=== PATIENT | female | born 1935 | race Caucasian/White ===

== ENCOUNTER 2020-06-02 11:55 | Inpatient (IN) | payer OTHER ==
--- NOTE | 2020-06-02 12:13 | PDOC ---
History of Present Illness - General Chief Complaint: Urinary Problem Stated Complaint: CONSTI/UTI Time Seen by Provider: 06/02/20 12:11 - History of Present Illness Initial Comments: Pt is an 84yo F with PMH HTN, HLD who presents with urinary complaints and rectal pain. Pt has a history of urinary symptoms in October, with multiple visits to urgent care and given multiple antibiotic courses with urology follow up. Was told by urology that testing was normal and suggested that patient may have overactive bladder - given a trial of mirabegron, but patient did not take medication due to concern for adverse effects (high BP). Reports improvement in urinary symptoms in December, and reports intermittent minimal symptoms in the meanwhile. States that since yesterday has noticed increased urinary frequency, hesitancy, and urgency. Reports history of intermittent rectal pain, for which she saw her PCP earlier this week. Was given hydrocortisone cream and celebrex for hemorrhoid. States that since yesterday, her rectal pain has become constant and sharp, occurring even without bowel movements. Reports 1 episode of diarrhea yesterday, denies f/c, chest pain, abdominal pain, n/v, constipation, dysuria, hematuria, flank pain. PCP: david Urologist: angle PMH: see above PSHx: hip surgery in october Meds: amlodipine, lisinopril, simvastatin, ASA 81 All: NKDA Review of Systems CONSTITUTIONAL:denies fever, chills, diaphoresis, generalized weakness, malaise, loss of appetite HEENT:denies rhinorrhea, nasal congestion, sore throat CARDIOVASCULAR:denies chest pain, syncope, palpitations, irregular heart rate, lightheadedness RESPIRATORY:denies cough, shortness of breath GASTROINTESTINAL: denies abdominal pain, nausea, vomiting, constipation, melena, hematochezia GENITOURINARY: reports frequency, urgency, hesitancy; denies dysuria, hematuria, flank pain, genital pain MUSCULOSKELETAL:reports arthralgia (constant) HEMATOLOGIC/IMMUNOLOGIC:denies easy bleeding, easy bruising ENDOCRINE: denies unexplained weight gain, unexplained weight loss NEUROLOGIC:denies headache, loss of consciousness, focal weakness or paresthesias, dizziness, mental status changes, bladder or bowel incontinence SKIN:denies rash, itching, pallor Physical Exam General: awake, alert, fully oriented, in mild distress, well developed, well nourished Head: normocephalic, atraumatic Eyes: PERRL, anicteric sclera, conjunctiva clear ENT: hearing grossly normal, oropharynx clear without exudates, slightly dry mucous membranes Neck: supple, normal ROM Lung: equal breath sounds b/l, CTA b/l, no crackles, wheezes Heart: tachycardic, normal S1, S2, no murmurs appreciated Abdomen: soft, non tender, normoactive bowel sounds, no guarding, rebound, masses Extremities: no edema, no erythema or tenderness, radial/DP/PT pulses 2+ and symmetric Neuro: CN2-12 grossly intact, moves all extremities, normal speech, sensation intact Skin: warm, dry, no rashes or lesions noted Rectal exam: external hemorrhoid at 6oclock, no gross blood, soft stool in rectal vault, no masses, nodules and tenderness appreciated [facility] Pt is an 84yo F with PMH HTN, HLD who presents with urinary complaints and rectal pain. DDx including but not limited to: UTI, external hemorrhoid Workup: UA/UCx UA: leukocyturia, -LE, -nitrites, few bacteria - Will order CBC, CMP CBC: hyponatremia, hypochloremia, no AMBER, LFT WNL - patient endorses increased water intake to improve constipation Admission discussed with patient who agreed to plan Case discussed with Dr. Garzon who accepted care for patient. Disposition: Admit Past History - Medical History Allergies/Adverse Reactions: Allergies Allergy/AdvReac Type Severity Reaction Status Date / Time No Known Allergies Allergy Verified 06/02/20 12:02 Home Medications: Ambulatory Orders Lisinopril [Prinivil] 15 mg PO BID 07/05/16 Simvastatin [Zocor -] 40 mg PO HS 07/05/16 Sennosides/Docusate Sodium [Senna Plus Tablet] 1 each PO BID #60 tablet 07/07/16 Amlodipine Besylate [Norvasc -] 5 mg PO DAILY 06/02/20 Aspirin [Children's Aspirin] 81 mg PO DAILY 06/02/20 Bisacodyl [Dulcolax] 2 tab PO BID 06/02/20 Polyethylene Glycol 3350 [Miralax 119 gm Btl -] 17 gm PO DAILY 06/02/20 Hydrocortisone 2.5% Topical Cr [Anusol-Hc -] 1 applic RC DAILY #1 tube 06/10/20 Sodium Chloride Tablet - 1 gm PO TID #24 tablet 06/10/20 COPD: No HTN: Yes Hypercholesterolemia: Yes - Reproductive History Is Patient Now?: No - Psycho-Social/Smoking History Smoking History: Never smoked Have you smoked in the past 12 months: No Number of Cigarettes Smoked Daily: 5 Information on smoking cessation initiated: No 'Breaking Loose' booklet given: 07/05/16 - Substance Abuse Hx (Audit-C & DAST Scrn) How often the patient has a drink containing alcohol: Never Score: In Men: 4 or > Positive; In Women: 3 or > Positive: 0 Screen Result (Pos requires Nsg. Audit-10AR): Negative In the last yr the pt used illegal drug/Rx for NonMed reason: No Score: Yes response is considered Positive: 0 Screen Result (Positive result requires Nsg. DAST-10): Negative *Physical Exam - Vital Signs Last Vital Signs Temp Pulse Resp BP Pulse Ox 98.3 F 105 H 18 156/73 97 06/02/20 11:56 06/02/20 11:56 06/02/20 11:56 06/02/20 11:56 06/02/20 11:56 ED Treatment Course - LABORATORY CBC & Chemistry Diagram: 06/06/20 09:50 06/10/20 07:23 Discharge - Discharge Information Problems reviewed: Yes Clinical Impression/Diagnosis: Anal or rectal pain, Hyponatremia Condition: Stable Disposition: HOME - Follow up/Referral - Patient Discharge Instructions - Post Discharge Activity
--- NOTE | 2020-06-02 13:12 | PDOC ---
Documentation entered by Ronnie Cunha SCRIBE, acting as scribe for Tori Cartagena MD. Tori Cartagena MD: This documentation has been prepared by the funmilayoibe, Ronnie Cunha SCRIBE, under my direction and personally reviewed by me in its entirety. I confirm that the documentation accurately reflects all work, treatment, procedures, and medical decision making performed by me. Attending Attestation - Resident Resident Name: Karla Quispe - ED Attending Attestation I have performed the following: I have examined & evaluated the patient, The case was reviewed & discussed with the resident, I agree w/resident's findings & plan, Exceptions are as noted - HPI HPI: 84 year old F history of HTN and HLD who presents to the emergency department for evaluation of urinary frequency, hesitancy, and urgency with worsening rectal pain that began two days ago. The patient reports a history of UTIs for which she has followed at Urgent Care and with her urologist. She notes her urologist stated she has normal anatomy (kidney and ureters) but may have overactive bladder. The patient reports intermittent rectal pain with bowel movements and hemorrhoids in the past but is currently complaining of sharp, constant rectal pain. She endorses using celebrex for relief of prior rectal pain. Allergies: NKA Social Hx: The patient reports smoking 4-5 cigarettes per day Surgical Hx: None reported PCP: Dr. Miranda - Physicial Exam PE: 06/02/20 12:12 GENERAL: Awake, alert, and fully oriented, in no acute distress HEAD: No signs of trauma EYES: PERRLA, EOMI, sclera anicteric, conjunctiva clear ENT: Auricles normal inspection, hearing grossly normal, nares patent, oropharynx clear without exudates. Moist mucosa NECK: Normal ROM, supple, no lymphadenopathy, JVD, or masses LUNGS: Breath sounds equal, clear to auscultation bilaterally. No wheezes, and no crackles HEART: Regular rate and rhythm, normal S1 and S2, no murmurs, rubs or gallops ABDOMEN: Soft, nontender, normoactive bowel sounds. No guarding, no rebound. No masses EXTREMITIES: Normal range of motion, no edema. No clubbing or cyanosis. No cords, erythema, or tenderness NEUROLOGICAL: Cranial nerves II through XII grossly intact. Normal speech. ambulates with assistance. SKIN: Warm, Dry, normal turgor, no rashes or lesions noted. RECTAL: +External non-thrombosed hemorrhoid at the 3 o'clock position, approximately 5 mm in diameter. - Medical Decision Making 06/02/20 13:13 Pt with history of UTIs, will check UA to begin. If normal, will proceed with labs. 06/02/20 16:45 As per discussion with [facility] urgent care, patient has history of Serratia UTI in November, sensitive to bactrim, amikacin, cefepime, aztreonam, cipro, gentamicin, ertapenem, meropenem, and zosyn. Resistant to macrobid, tobramycin, and tetracycline. Discharge - Discharge Information Problems reviewed: Yes Clinical Impression/Diagnosis: Anal or rectal pain, Hyponatremia - Follow up/Referral - Patient Discharge Instructions - Post Discharge Activity
[2020-06-02 13:29] LABS: EPI CELLS 8 /uL (0-25.1); HYALINE CASTS 1 /uL (0-3.1); PH,URINE 7.5 (5.0-8.0); URINE APPEARANCE CLEAR; URINE BACTERIA 109 /uL (0-1359); URINE BILIRUBIN NEGATIVE (NEGATIVE); URINE COLOR YELLOW; URINE GLUCOSE (UA) NEGATIVE (NEGATIVE); URINE KETONE NEGATIVE (NEGATIVE); URINE LEUK ESTERASE TRACE (NEGATIVE); URINE NITRITE NEGATIVE (NEGATIVE); URINE PROTEIN TRACE (NEGATIVE); URINE RBC 21 /uL (0-23.9); URINE WBC 49 /uL (0-25.8)
[2020-06-02] MEDS ORDERED: ACETAMINOPHEN 1000 MG/100 ML VIAL (NON FORMULARY) IVPB ONE (14:34)
[2020-06-02] MEDS ORDERED: ACETAMINOPHEN INJECTION 100 ML IVPB ONE (14:35)
[2020-06-02 14:39] LABS: BILIRUBIN,TOTAL 0.4 mg/dL (0.2-1); BLOOD UREA NITROGEN 7.1 mg/dL (7-18); CALCIUM 8.9 mg/dL (8.5-10.1); CREATININE 0.6 mg/dL (0.55-1.3); POTASSIUM 4.3 mmol/L (3.5-5.1); TOT PROT 7.5 g/dl (6.4-8.2)
[2020-06-02 14:47] LABS: BASO % 0.5 % (0-2.0); EOS % 0.2 % (0-4.5); HEMATOCRIT 36.4 % (32.4-45.2); HEMOGLOBIN 12.8 GM/dL (10.7-15.3); LYMPH % 9.9 % (8-40); MCH 32.7 pg (25.7-33.7); MCHC 35.2 g/dl (32.0-36.0); MEAN CELL VOLUME 92.8 fl (80-96); MEAN PLT VOLUME 7.1 fl (7.5-11.1); MONO % 9.1 % (3.8-10.2); NEUT % 80.3 % (42.8-82.8); PLATELET COUNT 321 K/MM3 (134-434); RBC 3.92 M/mm3 (3.60-5.2); RDW 13.1 % (11.6-15.6)
[2020-06-02] MEDS ORDERED: amLODIPine BESYLATE 5 MG TABLET (FP) PO ONE (16:29)
--- NOTE | 2020-06-02 16:37 | HP ---
CHIEF COMPLAINT: PCP: Dr Miranda HISTORY OF PRESENT ILLNESS: 84 year old female with a significant past medical history of mild glaucoma, HTN, hypercholesterolemia, hemorrhoids, history of hyponatremia (years ago, felt secondary to HCTZ) who presents to the emergency department for evaluation of urinary frequency, hesitancy, and urgency as well as worsening rectal pain. Patient has been having intermittent rectal pain for years which she attributes to chronic constipation prompting her to strain frequently. She has been taking tylenol for the pain which does not help. She also reports that she has been having increased frequency and urgency, also on and off for years. She was recently diagnosed with a UTI and given antibiotics. She was informed that her urologic anatomy is fine but she may have an overactive bladder Upon presentation she was evaluated and found to have a sodium level of 121. P atient reports that she is trying to drink more water (at the advice of her daughter) and striving for 64 ounces a day (8 glasses). This started about a week ago, in her efforts to combat constipation. Recent Travel: none PAST MEDICAL HISTORY: as above PAST SURGICAL HISTORY: right hip replacement Family history: mother in her 90s of respiratory problems. She had history of dementia and strokes. Father of complications of a heart attack at 81 years of age Social History: Smoking: quit 4 years ago Alcohol: she drinks vodka about 2 servings every evening Drugs: denies Allergies No Known Allergies Allergy (Verified 06/02/20 12:02) HOME MEDICATIONS: Home Medications Medication Instructions Recorded Lisinopril [Prinivil] 5 mg PO DAILY 07/05/16 Simvastatin [Zocor -] 40 mg PO HS 07/05/16 Sennosides/Docusate Sodium [Senna 1 each PO BID #60 tablet 07/07/16 Plus Tablet] REVIEW OF SYSTEMS CONSTITUTIONAL: Absent: fever, chills, diaphoresis, generalized weakness, malaise, loss of appetite, weight change HEENT: Absent: rhinorrhea, nasal congestion, throat pain, throat swelling, difficulty swallowing, mouth swelling, ear pain, eye pain, visual changes CARDIOVASCULAR: Absent: chest pain, syncope, palpitations, irregular heart rate, lightheadedness, peripheral edema RESPIRATORY: Absent: cough, shortness of breath, dyspnea with exertion, orthopnea, wheezing, stridor, hemoptysis GASTROINTESTINAL: Absent: abdominal pain, abdominal distension, nausea, vomiting, diarrhea, constipation, melena, hematochezia GENITOURINARY: Absent: dysuria, frequency, urgency, hesitancy, hematuria, flank pain, genital pain MUSCULOSKELETAL: Absent: myalgia, arthralgia, joint swelling, back pain, neck pain SKIN: Absent: rash, itching, pallor HEMATOLOGIC/IMMUNOLOGIC: Absent: easy bleeding, easy bruising, lymphadenopathy, frequent infections ENDOCRINE: Absent: unexplained weight gain, unexplained weight loss, heat intolerance, cold intolerance NEUROLOGIC: Absent: headache, focal weakness or paresthesias, dizziness, unsteady gait, seizure, mental status changes, bladder or bowel incontinence PSYCHIATRIC: Absent: anxiety, depression, suicidal or homicidal ideation, hallucinations. PHYSICAL EXAMINATION Vital Signs - 24 hr 06/02/20 11:56 Temperature 98.3 F Pulse Rate 105 H Respiratory 18 Rate Blood Pressure 156/73 O2 Sat by Pulse 97 Oximetry (%) GENERAL: Awake, alert, and fully oriented, in no acute distress. HEAD: Normal with no signs of trauma. EYES: Pupils equal, round and reactive to light, extraocular movements intact, sclera anicteric, conjunctiva clear. No lid lag. EARS, NOSE, THROAT: Ears normal, nares patent, oropharynx clear without exudates. Moist mucous membranes. NECK: Normal range of motion, supple without lymphadenopathy, JVD, or masses. LUNGS: Breath sounds equal, clear to auscultation bilaterally. No wheezes, and no crackles. No accessory muscle use. HEART: Regular rate and rhythm, normal S1 and S2 without murmur, rub or gallop. ABDOMEN: Soft, nontender, not distended, normoactive bowel sounds, no guarding, no rebound, no masses. No hepatomegaly or splenomegaly. On examination of her anus, there is mild erythema of the perianal area. A rectal tag is also noted and appears normal in color. Patient refused palpation secondary to discomfort. No bleeding noted. MUSCULOSKELETAL: Normal range of motion at all joints. No bony deformities or tenderness. No CVA tenderness. UPPER EXTREMITIES: 2+ pulses, warm, well-perfused. No cyanosis. No clubbing. No peripheral edema. LOWER EXTREMITIES: 2+ pulses, warm, well-perfused. No calf tenderness. No peripheral edema. NEUROLOGICAL: Cranial nerves II-XII intact. Normal speech. PSYCHIATRIC: Cooperative. Good eye contact. Appropriate mood and affect. SKIN: Warm, dry, normal turgor, no rashes or lesions noted, normal capillary refill. Laboratory Results - last 24 hr 06/02/20 06/02/20 06/02/20 13:00 13:00 13:50 WBC 9.0 RBC 3.92 Hgb 12.8 Hct 36.4 MCV 92.8 MCH 32.7 MCHC 35.2 RDW 13.1 Plt Count 321 MPV 7.1 L Absolute Neuts (auto) 7.2 Neutrophils % 80.3 D Lymphocytes % 9.9 D Monocytes % 9.1 Eosinophils % 0.2 D Basophils % 0.5 Nucleated RBC % 0 Sodium Potassium Chloride Carbon Dioxide Anion Gap BUN Creatinine Est GFR (CKD-EPI)AfAm Est GFR (CKD-EPI)NonAf Random Glucose Calcium Total Bilirubin AST ALT Alkaline Phosphatase Total Protein Albumin Urine Color Yellow Urine Appearance Clear Urine pH 7.5 D Ur Specific [place] 1.011 Urine Protein Trace Urine Glucose (UA) Negative Urine Ketones Negative Urine Blood Negative Urine Nitrite Negative Urine Bilirubin Negative Urine Urobilinogen 1.0 Ur Leukocyte Esterase Trace Urine WBC (Auto) 49 Urine RBC (Auto) 21 Urine Casts (Auto) 1 U Epithel Cells (Auto) 8 Urine Bacteria (Auto) 109 Ur Random Creatinine 50.0 U Random Total Protein 26.4 H Ur Random Sodium 98 Ur Random Potassium 44.0 Ur Random Chloride 104 L 06/02/20 13:50 WBC RBC Hgb Hct MCV MCH MCHC RDW Plt Count MPV Absolute Neuts (auto) Neutrophils % Lymphocytes % Monocytes % Eosinophils % Basophils % Nucleated RBC % Sodium 121 L Potassium 4.3 Chloride 86 L Carbon Dioxide 25 Anion Gap 10 BUN 7.1 Creatinine 0.6 Est GFR (CKD-EPI)AfAm 97.69 Est GFR (CKD-EPI)NonAf 84.29 Random Glucose 110 H Calcium 8.9 Total Bilirubin 0.4 AST 17 ALT 20 Alkaline Phosphatase 80 Total Protein 7.5 Albumin 4.0 Urine Color Urine Appearance Urine pH Ur Specific [place] Urine Protein Urine Glucose (UA) Urine Ketones Urine Blood Urine Nitrite Urine Bilirubin Urine Urobilinogen Ur Leukocyte Esterase Urine WBC (Auto) Urine RBC (Auto) Urine Casts (Auto) U Epithel Cells (Auto) Urine Bacteria (Auto) Ur Random Creatinine U Random Total Protein Ur Random Sodium Ur Random Potassium Ur Random Chloride ASSESSMENT/PLAN: 1. Rectal pain secondary to irritation, mild hemorrhoid flare - anusol - will continue miralax which helps her with regular BM - prn bisacodyl 2. Hyponatremia - on review of notes she was in hospital 4 years ago for rectal pain and incidentally noted hyponatremia - Suspect secondary to polydipsia. - work up: urine and serum osm, urine sodium, TSH - Dr Carson of nephrology consulted (case Discussed with) - fluid restriction as per direction from digital computer operator - salt tabs will be started - repeat BMP in am 3. cont statin for hypercholesterolemia 4. cont amlodipine and lisinopril for hypertension 5. Lovenox for DVT prophylaxis Family Medical History Family History: As Documented Problem List - Problem (1) Hyponatremia Code(s): E87.1 - HYPO-OSMOLALITY AND HYPONATREMIA (2) Anal or rectal pain Code(s): K62.89 - OTHER SPECIFIED DISEASES OF ANUS AND RECTUM (3) Constipation Code(s): K59.00 - CONSTIPATION, UNSPECIFIED Visit type - Medication Review Med list reviewed for High Risk Meds patients 65 and older: Yes - Emergency Visit Emergency Visit: Yes ED Registration Date: 06/02/20 Care time: The patient presented to the Emergency Department on the above date and was hospitalized for further evaluation of their emergent condition. - New Patient This patient is new to me today: Yes Date on this admission: 06/02/20 - Critical Care Critical Care patient: No
[2020-06-02] MEDS ORDERED: amLODIPine BESYLATE 5 MG TABLET (FP) ONE (17:01)
[2020-06-02 17:43] LABS: BLOOD UREA NITROGEN 6.2 mg/dL (7-18); CALCIUM 8.8 mg/dL (8.5-10.1); CREATININE 0.6 mg/dL (0.55-1.3); POTASSIUM 4.2 mmol/L (3.5-5.1)
[2020-06-02] MEDS: SODIUM CHLORIDE 1 GM TABLET PO SCH (18:11)
[2020-06-02] MEDS ORDERED: ACETAMINOPHEN 325 MG TABLET (FP) ONE (18:35)
[2020-06-02] MEDS: ACETAMINOPHEN 325 MG TABLET (FP) PO PRN (18:40)
[2020-06-02] MEDS ORDERED: LISINOPRIL 5 MG TABLET (FP) PO ONE (23:07)
[2020-06-02] MEDS ORDERED: MORPHINE SULFATE 2 MG/ML VIAL IM ONE (23:43)
[2020-06-03] MEDS ORDERED: PT OWN MED DRAWER 7, Y5N ONE ×5 (08:48→10:19)
[2020-06-03] MEDS ORDERED: BISACODYL 5 MG TABLET.DR (FP) PO PRN (09:00)
[2020-06-03] MEDS: amLODIPine BESYLATE 5 MG TABLET (FP) PO SCH (10:03)
[2020-06-03] MEDS: ENOXAPARIN NA (PORCINE) 40 MG/0.4 ML DISP.SYRIN SQ SCH (10:03)
[2020-06-03] MEDS: LISINOPRIL 5 MG TABLET (FP) PO SCH (10:03)
[2020-06-03] MEDS: ASPIRIN 81 MG CHEWABLE TABLETS PO SCH (10:03)
[2020-06-03 10:18] LABS: BASO % 1.4 % (0-2.0); EOS % 2.6 % (0-4.5); HEMATOCRIT 35.7 % (32.4-45.2); HEMOGLOBIN 12.3 GM/dL (10.7-15.3); LYMPH % 28.9 % (8-40); MCH 32.5 pg (25.7-33.7); MCHC 34.6 g/dl (32.0-36.0); MEAN CELL VOLUME 93.9 fl (80-96); MEAN PLT VOLUME 7.4 fl (7.5-11.1); MONO % 13.7 % (3.8-10.2); NEUT % 53.4 % (42.8-82.8); PLATELET COUNT 286 K/MM3 (134-434); RDW 13.2 % (11.6-15.6); WHITE BLOOD COUNT 6.6 K/mm3 (4.0-10.0)
[2020-06-03 10:18] LABS: MAGNESIUM 2.3 mg/dL (1.8-2.4)
[2020-06-03] MEDS: SODIUM CHLORIDE 1 GM TABLET PO SCH (10:21)
[2020-06-03] MEDS: HYDROCORTISONE 2.5% TOPICAL CREAM 30 GM TUBE RC SCH (10:21)
--- NOTE | 2020-06-03 11:55 | PN ---
Physical Exam: SUBJECTIVE: Patient seen and examined, sitting up, fluid restriction Na 124 today OBJECTIVE: Vital Signs Period Temp Pulse Resp BP Sys/S[place] Pulse Ox Last 24 Hr 97.7 F-98.3 F 69-105 18-20 128-176/61-81 95-97 GENERAL: The patient is awake, alert, and fully oriented, in no acute distress. HEAD: Normal with no signs of trauma. EYES: PERRL, extraocular movements intact, sclera anicteric, conjunctiva clear. No ptosis. ENT: Ears normal, nares patent, oropharynx clear without exudates, moist mucous membranes. NECK: Trachea midline, full range of motion, supple. LUNGS: Breath sounds equal, clear to auscultation bilaterally, no wheezes, no crackles, no accessory muscle use. HEART: Regular rate and rhythm, S1, S2 without murmur, rub or gallop. ABDOMEN: Soft, nontender, nondistended, normoactive bowel sounds, no guarding, no rebound, no hepatosplenomegaly, no masses. EXTREMITIES: 2+ pulses, warm, well-perfused, no edema. NEUROLOGICAL: Cranial nerves II through XII grossly intact. Normal speech, gait not observed. PSYCH: Normal mood, normal affect. SKIN: Warm, dry, normal turgor, no rashes or lesions noted Laboratory Results - last 24 hr 06/02/20 06/02/20 06/02/20 13:00 13:00 13:01 WBC RBC Hgb Hct MCV MCH MCHC RDW Plt Count MPV Absolute Neuts (auto) Neutrophils % Lymphocytes % Monocytes % Eosinophils % Basophils % Nucleated RBC % Sodium Potassium Chloride Carbon Dioxide Anion Gap BUN Creatinine Est GFR (CKD-EPI)AfAm Est GFR (CKD-EPI)NonAf Random Glucose Serum Osmolality Calcium Magnesium Total Bilirubin AST ALT Alkaline Phosphatase Total Protein Albumin TSH Urine Color Yellow Urine Appearance Clear Urine pH 7.5 D Ur Specific [place] 1.011 Urine Protein Trace Urine Glucose (UA) Negative Urine Ketones Negative Urine Blood Negative Urine Nitrite Negative Urine Bilirubin Negative Urine Urobilinogen 1.0 Ur Leukocyte Esterase Trace Urine WBC (Auto) 49 Urine RBC (Auto) 21 Urine Casts (Auto) 1 U Epithel Cells (Auto) 8 Urine Bacteria (Auto) 109 Urine Osmolality 371 Ur Random Creatinine 50.0 U Random Total Protein 26.4 H Ur Random Sodium 98 98 Ur Random Potassium 44.0 Ur Random Chloride 104 L 06/02/20 06/02/20 06/02/20 13:50 13:50 17:00 WBC 9.0 RBC 3.92 Hgb 12.8 Hct 36.4 MCV 92.8 MCH 32.7 MCHC 35.2 RDW 13.1 Plt Count 321 MPV 7.1 L Absolute Neuts (auto) 7.2 Neutrophils % 80.3 D Lymphocytes % 9.9 D Monocytes % 9.1 Eosinophils % 0.2 D Basophils % 0.5 Nucleated RBC % 0 Sodium 121 L 121 L Potassium 4.3 4.2 Chloride 86 L 86 L Carbon Dioxide 25 24 Anion Gap 10 11 BUN 7.1 6.2 L Creatinine 0.6 0.6 Est GFR (CKD-EPI)AfAm 97.69 97.69 Est GFR (CKD-EPI)NonAf 84.29 84.29 Random Glucose 110 H 110 H Serum Osmolality 248 L Calcium 8.9 8.8 Magnesium Total Bilirubin 0.4 AST 17 ALT 20 Alkaline Phosphatase 80 Total Protein 7.5 Albumin 4.0 TSH 1.37 Urine Color Urine Appearance Urine pH Ur Specific [place] Urine Protein Urine Glucose (UA) Urine Ketones Urine Blood Urine Nitrite Urine Bilirubin Urine Urobilinogen Ur Leukocyte Esterase Urine WBC (Auto) Urine RBC (Auto) Urine Casts (Auto) U Epithel Cells (Auto) Urine Bacteria (Auto) Urine Osmolality Ur Random Creatinine U Random Total Protein Ur Random Sodium Ur Random Potassium Ur Random Chloride 06/03/20 06/03/20 06:30 06:40 WBC 6.6 RBC 3.80 Hgb 12.3 Hct 35.7 MCV 93.9 MCH 32.5 MCHC 34.6 RDW 13.2 Plt Count 286 MPV 7.4 L Absolute Neuts (auto) 3.5 Neutrophils % 53.4 D Lymphocytes % 28.9 D Monocytes % 13.7 H Eosinophils % 2.6 D Basophils % 1.4 Nucleated RBC % 0 Sodium 124 L Potassium Chloride Carbon Dioxide Anion Gap BUN Creatinine Est GFR (CKD-EPI)AfAm Est GFR (CKD-EPI)NonAf Random Glucose Serum Osmolality Calcium Magnesium 2.3 Total Bilirubin AST ALT Alkaline Phosphatase Total Protein Albumin TSH Urine Color Urine Appearance Urine pH Ur Specific [place] Urine Protein Urine Glucose (UA) Urine Ketones Urine Blood Urine Nitrite Urine Bilirubin Urine Urobilinogen Ur Leukocyte Esterase Urine WBC (Auto) Urine RBC (Auto) Urine Casts (Auto) U Epithel Cells (Auto) Urine Bacteria (Auto) Urine Osmolality Ur Random Creatinine U Random Total Protein Ur Random Sodium Ur Random Potassium Ur Random Chloride Active Medications Generic Name Dose Route Start Last Admin Trade Name Freq PRN Reason Stop Dose Admin Acetaminophen 650 mg 06/02/20 16:50 06/02/20 18:40 Tylenol - PO 650 mg Q4H PRN Administration PAIN LEVEL 1-5 Amlodipine Besylate 5 mg 06/03/20 10:00 06/03/20 10:03 Norvasc - PO 5 mg DAILY ERNESTO Administration Aspirin 81 mg 06/03/20 10:00 06/03/20 10:03 Asa - PO 81 mg DAILY ERNESTO Administration Bisacodyl 20 mg 06/03/20 09:00 Dulcolax - PO ONCE PRN CONSTIPATION Enoxaparin Sodium 40 mg 06/03/20 10:00 06/03/20 10:03 Lovenox - SQ 40 mg DAILY ERNESTO Administration Hydrocortisone 1 applic 06/03/20 10:00 06/03/20 10:21 Anusol 2.5% Hc Cream - RC 1 applic DAILY ERNESTO Administration Lisinopril 5 mg 06/03/20 10:00 06/03/20 10:03 Prinivil PO 5 mg DAILY ERNESTO Administration Polyethylene Glycol 17 gm 06/03/20 10:00 Miralax (For Daily Use) - PO DAILY ERNESTO Sodium Chloride 1 gm 06/02/20 16:45 06/03/20 10:21 Sodium Chloride Tablet - PO 1 gm DAILY ERNESTO Administration ASSESSMENT/PLAN: 84 year old female with a significant past medical history of mild glaucoma, HTN, hypercholesterolemia, hemorrhoids, history of hyponatremia (years ago, felt secondary to HCTZ) Problem List - Problem (1) Hyponatremia - Suspect secondary to polydipsia. - work up: urine and serum osm, urine sodium, TSH -Nephrology following - fluid restriction as per direction from manager dental - c/w sodium tabs Code(s): E87.1 - HYPO-OSMOLALITY AND HYPONATREMIA (2) Anal or rectal pain (3) Constipation - anusol - continue miralax which helps her with regular BM - prn bisacodyl Code(s): K62.89 - OTHER SPECIFIED DISEASES OF ANUS AND RECTUM Code(s): K59.00 - CONSTIPATION, UNSPECIFIED (4) HTN (5) Hypercholesterolemia -c/w norvsac, lisinopril, statin (6) UTI, chronic -UA neg -Urine cx strep agalactiae group B 50,000-60,000 -will hold off on ABT, afebrile, no leukocystosis Dispo: requires inpatient treatment Visit type - Emergency Visit Emergency Visit: Yes ED Registration Date: 06/02/20 Care time: The patient presented to the Emergency Department on the above date and was hospitalized for further evaluation of their emergent condition. - New Patient This patient is new to me today: Yes Date on this admission: 06/03/20 - Critical Care Critical Care patient: No - Medication Review Med list reviewed for High Risk Meds patients 65 and older: No
[2020-06-03] MEDS: POLYETHYLENE GLYCOL 3350 119 GM BTL PO SCH (11:56)
--- NOTE | 2020-06-03 12:49 | CONSULT ---
Consult Consult Specialty:: Nephrology Reason for Consultation:: hyponatremia - History of Present Illness Chief Complaint: urinary frequency and urgency History of Present Illness: Pt is an 84 year old female with pmhx of hyponatremia, glaucoma, htn, hld, and hemorrhoids who presents with dysuria. She was found to have a UTI. She was also found to be hyponatremic. She does have history of hyponatremia. She says that she has been trying to drink alot of water to help with her constipation. She denies weight loss. She denies loss of appetite. She denies fevers or chills. She denies change in vision. SHe denies loss of balance. - History Source History Provided By: Patient, Medical Record - Past Medical History Cardio/Vascular: Yes: HTN Gastrointestinal: Yes: Constipation Renal/: Yes: Other (hyponatremia) ...: No - Past Surgical History Past Surgical History: Yes: Cataract Removal - Alcohol/Substance Use Hx Alcohol Use: No - Smoking History Smoking history: Never smoked Have you smoked in the past 12 months: No Aproximately how many cigarettes per day: 5 Home Medications - Allergies Allergies/Adverse Reactions: Allergies Allergy/AdvReac Type Severity Reaction Status Date / Time No Known Allergies Allergy Verified 06/02/20 12:02 - Home Medications Home Medications: Ambulatory Orders Lisinopril [Prinivil] 15 mg PO BID 07/05/16 Simvastatin [Zocor -] 40 mg PO HS 07/05/16 Sennosides/Docusate Sodium [Senna Plus Tablet] 1 each PO BID #60 tablet 07/07/16 Amlodipine Besylate [Norvasc -] 5 mg PO DAILY 06/02/20 Aspirin [Children's Aspirin] 81 mg PO DAILY 06/02/20 Bisacodyl [Dulcolax] 2 tab PO BID 06/02/20 Polyethylene Glycol 3350 [Miralax 119 gm Btl -] 17 gm PO DAILY 06/02/20 Family Medical History Family History: Denies Review of Systems - Review of Systems Constitutional: reports: Weakness Eyes: reports: No Symptoms HENT: reports: No Symptoms Neck: reports: No Symptoms Cardiovascular: reports: No Symptoms Respiratory: reports: No Symptoms Gastrointestinal: reports: No Symptoms Genitourinary: reports: No Symptoms Musculoskeletal: reports: No Symptoms Integumentary: reports: No Symptoms Neurological: reports: No Symptoms Endocrine: reports: No Symptoms Hematology/Lymphatic: reports: No Symptoms Psychiatric: reports: No Symptoms Physical Exam Vital Signs: Vital Signs Temperature 97.7 F 06/03/20 10:00 Pulse Rate 81 06/03/20 10:00 Respiratory Rate 19 06/03/20 10:00 Blood Pressure 128/61 06/03/20 10:00 O2 Sat by Pulse Oximetry (%) 95 06/03/20 10:00 Constitutional: Yes: Calm Eyes: Yes: Conjunctiva Clear HENT: Yes: Atraumatic Neck: Yes: Supple Cardiovascular: Yes: S1, S2 Respiratory: Yes: CTA Bilaterally Gastrointestinal: Yes: Normal Bowel Sounds, Soft Renal/: Yes: WNL Musculoskeletal: Yes: WNL Edema: No Neurological: Yes: Oriented Psychiatric: Yes: Oriented Labs: CBC, BMP 06/03/20 06:30 06/03/20 06:40 Problem List - Problems (1) Hyponatremia Code(s): E87.1 - HYPO-OSMOLALITY AND HYPONATREMIA (2) Constipation Code(s): K59.00 - CONSTIPATION, UNSPECIFIED Assessment/Plan Current Medications Generic Name Dose Route Start Last Admin Trade Name Freq PRN Reason Stop Dose Admin Acetaminophen 650 mg 06/02/20 16:50 06/02/20 18:40 Tylenol - PO 650 mg Q4H PRN Administration PAIN LEVEL 1-5 Amlodipine Besylate 5 mg 06/03/20 10:00 06/03/20 10:03 Norvasc - PO 5 mg DAILY ERNESTO Administration Aspirin 81 mg 06/03/20 10:00 06/03/20 10:03 Asa - PO 81 mg DAILY ERNESTO Administration Bisacodyl 20 mg 06/03/20 09:00 Dulcolax - PO ONCE PRN CONSTIPATION Enoxaparin Sodium 40 mg 06/03/20 10:00 06/03/20 10:03 Lovenox - SQ 40 mg DAILY ERNESTO Administration Hydrocortisone 1 applic 06/03/20 10:00 06/03/20 10:21 Anusol 2.5% Hc Cream - RC 1 applic DAILY ERNESTO Administration Lisinopril 5 mg 06/03/20 10:00 06/03/20 10:03 Prinivil PO 5 mg DAILY ERNESTO Administration Polyethylene Glycol 17 gm 06/03/20 10:00 06/03/20 11:56 Miralax (For Daily Use) - PO 17 grams DAILY ERNESTO Administration Sodium Chloride 1 gm 06/02/20 16:45 06/03/20 10:21 Sodium Chloride Tablet - PO 1 gm DAILY ERNESTO Administration Laboratory Tests 06/02/20 06/02/20 06/02/20 13:00 13:01 17:00 Serum Osmolality 248 L Ur Specific [place] 1.011 Urine Protein Trace Urine Osmolality 371 Ur Random Sodium 98 Impression 1. hyponatremia 2. UTI 3. htn 4. constipation 5. rectal pain Plan - restrict free water to 1 liter - cont salt tabs - urine studies consistent with diadh - check ct chest - cehck ct abd and pelvis - age appropriate screening - pt at risk to fall - repeat lab in a
[2020-06-04] MEDS: POLYETHYLENE GLYCOL 3350 119 GM BTL PO SCH (10:17)
[2020-06-04] MEDS: ENOXAPARIN NA (PORCINE) 40 MG/0.4 ML DISP.SYRIN SQ SCH (10:20)
[2020-06-04] MEDS: ASPIRIN 81 MG CHEWABLE TABLETS PO SCH (10:21)
[2020-06-04] MEDS: LISINOPRIL 5 MG TABLET (FP) PO SCH (10:22)
[2020-06-04] MEDS: amLODIPine BESYLATE 5 MG TABLET (FP) PO SCH (10:22)
[2020-06-04] MEDS: SODIUM CHLORIDE 1 GM TABLET PO SCH ×2 (10:22→21:39)
[2020-06-04] MEDS: HYDROCORTISONE 2.5% TOPICAL CREAM 30 GM TUBE RC SCH (10:23)
[2020-06-04 10:52] LABS: BASO % 0.8 % (0-2.0); EOS % 0.8 % (0-4.5); HEMATOCRIT 36.4 % (32.4-45.2); HEMOGLOBIN 12.5 GM/dL (10.7-15.3); LYMPH % 12.7 % (8-40); MCH 31.8 pg (25.7-33.7); MCHC 34.4 g/dl (32.0-36.0); MEAN CELL VOLUME 92.3 fl (80-96); MONO % 8.6 % (3.8-10.2); NEUT % 77.1 % (42.8-82.8); PLATELET COUNT 327 K/MM3 (134-434); RBC 3.94 M/mm3 (3.60-5.2); RDW 13.4 % (11.6-15.6)
--- NOTE | 2020-06-04 10:53 | EKG ---
Test Reason : Blood Pressure : / mmHG Vent. Rate : 069 BPM Atrial Rate : 069 BPM P-R Int : 230 ms QRS Dur : 072 ms QT Int : 396 ms P-R-T Axes : 014 -15 038 degrees QTc Int : 424 ms POOR DATA QUALITY, INTERPRETATION MAY BE ADVERSELY AFFECTED SINUS RHYTHM WITH 1ST DEGREE A-V BLOCK OTHERWISE NORMAL ECG WHEN COMPARED WITH ECG OF 03-JUN-2020 20:28, PREMATURE ATRIAL COMPLEXES ARE NO LONGER PRESENT Confirmed by Mason Sheriff MD ([id number]) on 06/04/2020 10:53:01 AM Referred By: Confirmed By:Mason Sheriff MD
--- NOTE | 2020-06-04 10:54 | EKG ---
Test Reason : Blood Pressure : / mmHG Vent. Rate : 067 BPM Atrial Rate : 067 BPM P-R Int : 270 ms QRS Dur : 072 ms QT Int : 402 ms P-R-T Axes : 037 -20 022 degrees QTc Int : 424 ms POOR DATA QUALITY, INTERPRETATION MAY BE ADVERSELY AFFECTED SINUS RHYTHM WITH 1ST DEGREE A-V BLOCK WITH PREMATURE ATRIAL COMPLEXES POSSIBLE LATERAL INFARCT , AGE UNDETERMINED ABNORMAL ECG WHEN COMPARED WITH ECG OF 05-JUL-2016 03:19, PREMATURE ATRIAL COMPLEXES ARE NOW PRESENT Confirmed by Mason Sherfif MD ([id number]) on 06/04/2020 10:53:02 AM Referred By: Confirmed By:Mason Sheriff MD
[2020-06-04 11:19] LABS: ALBUMIN 3.7 g/dl (3.4-5.0); BILIRUBIN,TOTAL 0.9 mg/dL (0.2-1); BLOOD UREA NITROGEN 10.2 mg/dL (7-18); CALCIUM 8.9 mg/dL (8.5-10.1); CREATININE 0.7 mg/dL (0.55-1.3); MAGNESIUM 2.3 mg/dL (1.8-2.4); POTASSIUM 4.2 mmol/L (3.5-5.1); TOT PROT 7.4 g/dl (6.4-8.2)
--- NOTE | 2020-06-04 14:05 | PN ---
Progress Note, Physician History of Present Illness: Pt seen and examined at bedside. She is awake and alert. She denies shortness of breath. - Current Medication List Current Medications: Active Medications Acetaminophen (Tylenol -) 650 mg PO Q4H PRN PRN Reason: PAIN LEVEL 1-5 Last Admin: 06/02/20 18:40 Dose: 650 mg Documented by: Amlodipine Besylate (Norvasc -) 5 mg PO DAILY [facility] Last Admin: 06/04/20 10:22 Dose: 5 mg Documented by: Aspirin (Asa -) 81 mg PO DAILY [facility] Last Admin: 06/04/20 10:21 Dose: 81 mg Documented by: Bisacodyl (Dulcolax -) 20 mg PO ONCE PRN PRN Reason: CONSTIPATION Last Admin: 06/04/20 03:56 Dose: 20 mg Documented by: Enoxaparin Sodium (Lovenox -) 40 mg SQ DAILY [facility] Last Admin: 06/04/20 10:20 Dose: 40 mg Documented by: Hydrocortisone (Anusol 2.5% Hc Cream -) 1 applic RC DAILY [facility] Last Admin: 06/04/20 10:23 Dose: 1 applic Documented by: Lisinopril (Prinivil) 5 mg PO DAILY [facility] Last Admin: 06/04/20 10:22 Dose: 5 mg Documented by: Polyethylene Glycol (Miralax (For Daily Use) -) 17 gm PO DAILY [facility] Last Admin: 06/04/20 10:17 Dose: Not Given Documented by: Sodium Chloride (Sodium Chloride Tablet -) 1 gm PO DAILY [facility] Last Admin: 06/04/20 10:22 Dose: 1 gm Documented by: - Objective Vital Signs: Vital Signs Temperature 98.6 F 06/04/20 13:39 Pulse Rate 84 06/04/20 13:39 Respiratory Rate 18 06/04/20 13:39 Blood Pressure 129/67 06/04/20 13:39 O2 Sat by Pulse Oximetry (%) 97 06/04/20 10:00 Constitutional: Yes: Calm Eyes: Yes: Conjunctiva Clear HENT: Yes: Atraumatic Neck: Yes: Supple Cardiovascular: Yes: S1, S2 Respiratory: Yes: CTA Bilaterally Gastrointestinal: Yes: Soft Genitourinary: Yes: WNL Musculoskeletal: Yes: WNL Edema: No Integumentary: Yes: WNL Neurological: Yes: Oriented Psychiatric: Yes: Oriented Labs: CBC, BMP 06/04/20 09:47 06/04/20 09:47 Problem List - Problems (1) Hyponatremia Code(s): E87.1 - HYPO-OSMOLALITY AND HYPONATREMIA (2) Constipation Code(s): K59.00 - CONSTIPATION, UNSPECIFIED Assessment/Plan Current Medications Generic Name Dose Route Start Last Admin Trade Name Freq PRN Reason Stop Dose Admin Acetaminophen 650 mg 06/02/20 16:50 06/02/20 18:40 Tylenol - PO 650 mg Q4H PRN Administration PAIN LEVEL 1-5 Amlodipine Besylate 5 mg 06/03/20 10:00 06/04/20 10:22 Norvasc - PO 5 mg DAILY ERNESTO Administration Aspirin 81 mg 06/03/20 10:00 06/04/20 10:21 Asa - PO 81 mg DAILY ERNESTO Administration Bisacodyl 20 mg 06/03/20 09:00 06/04/20 03:56 Dulcolax - PO 20 mg ONCE PRN Administration CONSTIPATION Enoxaparin Sodium 40 mg 06/03/20 10:00 06/04/20 10:20 Lovenox - SQ 40 mg DAILY ERNESTO Administration Hydrocortisone 1 applic 06/03/20 10:00 06/04/20 10:23 Anusol 2.5% Hc Cream - RC 1 applic DAILY ERNESTO Administration Lisinopril 5 mg 06/03/20 10:00 06/04/20 10:22 Prinivil PO 5 mg DAILY ERNESTO Administration Polyethylene Glycol 17 gm 06/03/20 10:00 06/04/20 10:17 Miralax (For Daily Use) - PO Not Given DAILY ERNESTO Sodium Chloride 1 gm 06/02/20 16:45 06/04/20 10:22 Sodium Chloride Tablet - PO 1 gm DAILY ERNESTO Administration Impression 1. hyponatremia 2. UTI 3. htn 4. constipation 5. rectal pain Plan - increase salt tabs - restrict free water - repeat labs in am - pt remains at risk to fall - urine studies consistent with siadh - age appropriate screening
[2020-06-04] MEDS ORDERED: SODIUM CHLORIDE 1 GM TABLET PO ONE (14:15)
--- NOTE | 2020-06-04 17:22 | PN ---
Physical Exam: SUBJECTIVE: Patient seen and examined OBJECTIVE: Vital Signs Period Temp Pulse Resp BP Sys/Salgado Pulse Ox Last 24 Hr 97.8 F-98.6 F 72-85 18-18 105-144/57-78 96-97 GENERAL: The patient is awake, alert, and fully oriented, in no acute distress. HEAD: Normal with no signs of trauma. EYES: PERRL, extraocular movements intact, sclera anicteric, conjunctiva clear. No ptosis. ENT: Ears normal, nares patent, oropharynx clear without exudates, moist mucous membranes. NECK: Trachea midline, full range of motion, supple. LUNGS: Breath sounds equal, clear to auscultation bilaterally, no wheezes, no crackles, no accessory muscle use. HEART: Regular rate and rhythm, S1, S2 without murmur, rub or gallop. ABDOMEN: Soft, nontender, nondistended, normoactive bowel sounds, no guarding, no rebound, no hepatosplenomegaly, no masses. EXTREMITIES: 2+ pulses, warm, well-perfused, no edema. NEUROLOGICAL: Cranial nerves II through XII grossly intact. Normal speech, gait not observed. PSYCH: Normal mood, normal affect. SKIN: Warm, dry, normal turgor, no rashes or lesions noted Laboratory Results - last 24 hr 06/02/20 06/04/20 06/04/20 16:00 09:47 09:47 WBC 8.0 RBC 3.94 Hgb 12.5 Hct 36.4 MCV 92.3 MCH 31.8 MCHC 34.4 RDW 13.4 Plt Count 327 MPV 7.0 L Absolute Neuts (auto) 6.2 Neutrophils % 77.1 D Lymphocytes % 12.7 D Monocytes % 8.6 Eosinophils % 0.8 Basophils % 0.8 Nucleated RBC % 0 Sodium 124 L Potassium 4.2 Chloride 89 L Carbon Dioxide 24 Anion Gap 11 BUN 10.2 Creatinine 0.7 Est GFR (CKD-EPI)AfAm 92.86 Est GFR (CKD-EPI)NonAf 80.12 Random Glucose 155 H Calcium 8.9 Magnesium 2.3 Total Bilirubin 0.9 AST 16 ALT 19 Alkaline Phosphatase 74 Total Protein 7.4 Albumin 3.7 COVID-19 (YOLANDA) Not detected Active Medications Generic Name Dose Route Start Last Admin Trade Name Freq PRN Reason Stop Dose Admin Acetaminophen 650 mg 06/02/20 16:50 06/02/20 18:40 Tylenol - PO 650 mg Q4H PRN Administration PAIN LEVEL 1-5 Amlodipine Besylate 5 mg 06/03/20 10:00 06/04/20 10:22 Norvasc - PO 5 mg DAILY ERNESTO Administration Aspirin 81 mg 06/03/20 10:00 06/04/20 10:21 Asa - PO 81 mg DAILY ERNESTO Administration Bisacodyl 20 mg 06/03/20 09:00 06/04/20 03:56 Dulcolax - PO 20 mg ONCE PRN Administration CONSTIPATION Enoxaparin Sodium 40 mg 06/03/20 10:00 06/04/20 10:20 Lovenox - SQ 40 mg DAILY ERNESTO Administration Hydrocortisone 1 applic 06/03/20 10:00 06/04/20 10:23 Anusol 2.5% Hc Cream - RC 1 applic DAILY ERNESTO Administration Lisinopril 5 mg 06/03/20 10:00 06/04/20 10:22 Prinivil PO 5 mg DAILY ERNESTO Administration Polyethylene Glycol 17 gm 06/03/20 10:00 06/04/20 10:17 Miralax (For Daily Use) - PO Not Given DAILY ERNESTO Sodium Chloride 1 gm 06/04/20 22:00 Sodium Chloride Tablet - PO BID ERNESTO ASSESSMENT/PLAN: 84 year-old female with a PMH significant for HTN, HLD, and history of hyponatremia, admitted for hyponatremia. Hyponatremia SIADH --Na 121 on admission, 124 today --continue to fluid restrict 1L --increase salt tabs to BID Pyruia --Group B strep <60k --afebrile, no leukocytosis --continue to observe off antibiotics Hypertension --BP stable --continue amlodipine, lisinopril Hyperlipidemia --not on statin therapy DVT prophylaxis: subq lovenox Physical therapy Dispo: continues to require inpatient care. Full code. Visit type - Emergency Visit Emergency Visit: Yes ED Registration Date: 06/02/20 Care time: The patient presented to the Emergency Department on the above date and was hospitalized for further evaluation of their emergent condition. - New Patient This patient is new to me today: Yes Date on this admission: 06/05/20 - Critical Care Critical Care patient: No - Medication Review Med list reviewed for High Risk Meds patients 65 and older: Yes
[2020-06-05] MEDS: amLODIPine BESYLATE 5 MG TABLET (FP) PO SCH (09:44)
[2020-06-05] MEDS: ASPIRIN 81 MG CHEWABLE TABLETS PO SCH (09:44)
[2020-06-05] MEDS: POLYETHYLENE GLYCOL 3350 119 GM BTL PO SCH (09:44)
[2020-06-05] MEDS: ENOXAPARIN NA (PORCINE) 40 MG/0.4 ML DISP.SYRIN SQ SCH (09:44)
[2020-06-05] MEDS: LISINOPRIL 5 MG TABLET (FP) PO SCH (09:44)
[2020-06-05] MEDS: SODIUM CHLORIDE 1 GM TABLET PO SCH ×2 (09:44→22:56)
[2020-06-05] MEDS: HYDROCORTISONE 2.5% TOPICAL CREAM 30 GM TUBE RC SCH (09:45)
[2020-06-05 11:26] LABS: BASO % 0.7 % (0-2.0); HEMATOCRIT 33.1 % (32.4-45.2); HEMOGLOBIN 11.7 GM/dL (10.7-15.3); LYMPH % 10.8 % (8-40); MCH 33.2 pg (25.7-33.7); MCHC 35.4 g/dl (32.0-36.0); MEAN CELL VOLUME 93.6 fl (80-96); MEAN PLT VOLUME 7.2 fl (7.5-11.1); MONO % 11.5 % (3.8-10.2); PLATELET COUNT 280 K/MM3 (134-434); RBC 3.54 M/mm3 (3.60-5.2); RDW 13.1 % (11.6-15.6); WHITE BLOOD COUNT 9.5 K/mm3 (4.0-10.0)
[2020-06-05 13:16] LABS: ALBUMIN 3.4 g/dl (3.4-5.0); BILIRUBIN,TOTAL 0.3 mg/dL (0.2-1); BLOOD UREA NITROGEN 14.2 mg/dL (7-18); CALCIUM 8.3 mg/dL (8.5-10.1); CREATININE 0.7 mg/dL (0.55-1.3); MAGNESIUM 2.4 mg/dL (1.8-2.4); POTASSIUM 4.1 mmol/L (3.5-5.1); TOT PROT 6.7 g/dl (6.4-8.2)
[2020-06-05] MEDS ORDERED: SODIUM CHLORIDE 1 GM TABLET PO ONE (13:36)
--- NOTE | 2020-06-05 13:36 | PN ---
Progress Note, Physician History of Present Illness: Pt seen and examined at bedside. She is awake and alert. SHe had a fall last night. - Current Medication List Current Medications: Active Medications Acetaminophen (Tylenol -) 650 mg PO Q4H PRN PRN Reason: PAIN LEVEL 1-5 Last Admin: 06/02/20 18:40 Dose: 650 mg Documented by: Amlodipine Besylate (Norvasc -) 5 mg PO DAILY [facility] Last Admin: 06/05/20 09:44 Dose: 5 mg Documented by: Aspirin (Asa -) 81 mg PO DAILY [facility] Last Admin: 06/05/20 09:44 Dose: 81 mg Documented by: Bisacodyl (Dulcolax -) 20 mg PO ONCE PRN PRN Reason: CONSTIPATION Last Admin: 06/04/20 03:56 Dose: 20 mg Documented by: Enoxaparin Sodium (Lovenox -) 40 mg SQ DAILY [facility] Last Admin: 06/05/20 09:44 Dose: 40 mg Documented by: Hydrocortisone (Anusol 2.5% Hc Cream -) 1 applic RC DAILY [facility] Last Admin: 06/05/20 09:45 Dose: 1 applic Documented by: Lisinopril (Prinivil) 5 mg PO DAILY [facility] Last Admin: 06/05/20 09:44 Dose: 5 mg Documented by: Polyethylene Glycol (Miralax (For Daily Use) -) 17 gm PO DAILY [facility] Last Admin: 06/05/20 09:44 Dose: Not Given Documented by: Sodium Chloride (Sodium Chloride Tablet -) 1 gm PO BID [facility] Last Admin: 06/05/20 09:44 Dose: 1 gm Documented by: - Objective Vital Signs: Vital Signs Temperature 98.2 F 06/05/20 09:38 Pulse Rate 70 06/05/20 09:38 Respiratory Rate 18 06/05/20 09:38 Blood Pressure 139/70 06/05/20 09:38 O2 Sat by Pulse Oximetry (%) 97 06/05/20 09:00 Constitutional: Yes: Calm Eyes: Yes: Conjunctiva Clear HENT: Yes: Atraumatic Neck: Yes: Supple Cardiovascular: Yes: S1, S2 Respiratory: Yes: CTA Bilaterally Gastrointestinal: Yes: Normal Bowel Sounds, Soft Genitourinary: Yes: WNL Musculoskeletal: Yes: WNL Edema: No Neurological: Yes: Oriented Psychiatric: Yes: Oriented Labs: CBC, BMP 06/05/20 10:06 06/05/20 10:06 Problem List - Problems (1) Hyponatremia Code(s): E87.1 - HYPO-OSMOLALITY AND HYPONATREMIA (2) Constipation Code(s): K59.00 - CONSTIPATION, UNSPECIFIED Assessment/Plan Current Medications Generic Name Dose Route Start Last Admin Trade Name Freq PRN Reason Stop Dose Admin Acetaminophen 650 mg 06/02/20 16:50 06/02/20 18:40 Tylenol - PO 650 mg Q4H PRN Administration PAIN LEVEL 1-5 Amlodipine Besylate 5 mg 06/03/20 10:00 06/05/20 09:44 Norvasc - PO 5 mg DAILY ERNESTO Administration Aspirin 81 mg 06/03/20 10:00 06/05/20 09:44 Asa - PO 81 mg DAILY ERNESTO Administration Bisacodyl 20 mg 06/03/20 09:00 06/04/20 03:56 Dulcolax - PO 20 mg ONCE PRN Administration CONSTIPATION Enoxaparin Sodium 40 mg 06/03/20 10:00 06/05/20 09:44 Lovenox - SQ 40 mg DAILY ERNESTO Administration Hydrocortisone 1 applic 06/03/20 10:00 06/05/20 09:45 Anusol 2.5% Hc Cream - RC 1 applic DAILY ERNESTO Administration Lisinopril 5 mg 06/03/20 10:00 06/05/20 09:44 Prinivil PO 5 mg DAILY ERNESTO Administration Polyethylene Glycol 17 gm 06/03/20 10:00 06/05/20 09:44 Miralax (For Daily Use) - PO Not Given DAILY ERNESTO Sodium Chloride 1 gm 06/04/20 22:00 06/05/20 09:44 Sodium Chloride Tablet - PO 1 gm BID ERNESTO Administration Impression 1. hyponatremia 2. UTI 3. htn 4. constipation 5. rectal pain Plan - sodium is improved to 127 - cont salt tabs - cont free water restriction - pt remains at risk to fall - urine studies consistent with siadh - age appropriate cancer screening
--- NOTE | 2020-06-05 15:29 | PN ---
Physical Exam: SUBJECTIVE: Patient seen and examined at bedside. OBJECTIVE: Vital Signs Period Temp Pulse Resp BP Sys/Salgado Pulse Ox Last 24 Hr 98.0 F-98.7 F 70-95 18-20 131-161/55-73 96-97 GENERAL: The patient is awake, alert, and fully oriented, in no acute distress. LUNGS: Breath sounds equal, clear to auscultation bilaterally, no wheezes, no crackles, no accessory muscle use. HEART: Regular rate and rhythm, S1, S2 ABDOMEN: Soft, nontender, nondistended EXTREMITIES: 2+ pulses, warm, well-perfused, no edema. NEUROLOGICAL: Cranial nerves II through XII grossly intact. Normal speech, gait not observed. Laboratory Results - last 24 hr 06/05/20 06/05/20 10:06 10:06 WBC 9.5 RBC 3.54 L Hgb 11.7 Hct 33.1 MCV 93.6 MCH 33.2 MCHC 35.4 RDW 13.1 Plt Count 280 MPV 7.2 L Absolute Neuts (auto) 7.2 Neutrophils % 76.0 Lymphocytes % 10.8 Monocytes % 11.5 H Eosinophils % 1.0 Basophils % 0.7 Nucleated RBC % 0 Sodium 127 L Potassium 4.1 Chloride 94 L Carbon Dioxide 26 Anion Gap 7 L BUN 14.2 Creatinine 0.7 Est GFR (CKD-EPI)AfAm 92.86 Est GFR (CKD-EPI)NonAf 80.12 Random Glucose 104 Calcium 8.3 L Magnesium 2.4 Total Bilirubin 0.3 AST 13 L ALT 17 Alkaline Phosphatase 67 Total Protein 6.7 Albumin 3.4 Active Medications Generic Name Dose Route Start Last Admin Trade Name Agustinq PRN Reason Stop Dose Admin Acetaminophen 650 mg 06/02/20 16:50 06/02/20 18:40 Tylenol - PO 650 mg Q4H PRN Administration PAIN LEVEL 1-5 Amlodipine Besylate 5 mg 06/03/20 10:00 06/05/20 09:44 Norvasc - PO 5 mg DAILY ERNESTO Administration Aspirin 81 mg 06/03/20 10:00 06/05/20 09:44 Asa - PO 81 mg DAILY ERNESTO Administration Bisacodyl 20 mg 06/03/20 09:00 06/04/20 03:56 Dulcolax - PO 20 mg ONCE PRN Administration CONSTIPATION Enoxaparin Sodium 40 mg 06/03/20 10:00 06/05/20 09:44 Lovenox - SQ 40 mg DAILY ERNESTO Administration Hydrocortisone 1 applic 06/03/20 10:00 06/05/20 09:45 Anusol 2.5% Hc Cream - RC 1 applic DAILY ERNESTO Administration Lisinopril 5 mg 06/03/20 10:00 06/05/20 09:44 Prinivil PO 5 mg DAILY ERNESTO Administration Polyethylene Glycol 17 gm 06/03/20 10:00 06/05/20 09:44 Miralax (For Daily Use) - PO Not Given DAILY ERNESTO Sodium Chloride 1 gm 06/04/20 22:00 06/05/20 09:44 Sodium Chloride Tablet - PO 1 gm BID ERNESTO Administration ASSESSMENT/PLAN: 84 year-old female with a PMH significant for HTN, HLD, and history of hyponatremia, admitted for hyponatremia. Toxic metabolic encephalopathy secondary to hyponatremia SIADH --Na 121 on admission; patient reports in several days prior to admission she was unsteady walking and tremulous; she feels better now but still feels unsteady walking, fell last night getting out of bed --Na127 today --continue to fluid restrict 1L --increase salt tabs to BID s/p fall --CT head negative Pyruia --Group B strep <60k --afebrile, no leukocytosis --has had multiple urine screens over past several months, all negative for infection; urologist at home thinks symptoms of dysuria, urgency are from bladder spasms; prescribed Myrbetriq but patient self dc'd Hypertension --BP stable --continue amlodipine, lisinopril Hyperlipidemia --not on statin therapy DVT prophylaxis: subq lovenox Physical therapy Dispo: continues to require inpatient care. Full code. Visit type - Emergency Visit Emergency Visit: Yes ED Registration Date: 06/02/20 Care time: The patient presented to the Emergency Department on the above date and was hospitalized for further evaluation of their emergent condition. - New Patient This patient is new to me today: No - Critical Care Critical Care patient: No - Medication Review Med list reviewed for High Risk Meds patients 65 and older: Yes
[2020-06-05] MEDS ORDERED: PT OWN MED DRAWER 7, Y5N ONE (21:16)
[2020-06-06 10:15] LABS: EOS % 1.6 % (0-4.5); HEMATOCRIT 34.6 % (32.4-45.2); HEMOGLOBIN 11.9 GM/dL (10.7-15.3); LYMPH % 14.4 % (8-40); MCH 32.3 pg (25.7-33.7); MCHC 34.5 g/dl (32.0-36.0); MEAN CELL VOLUME 93.6 fl (80-96); MEAN PLT VOLUME 6.7 fl (7.5-11.1); MONO % 9.6 % (3.8-10.2); NEUT % 73.4 % (42.8-82.8); PLATELET COUNT 289 K/MM3 (134-434); RDW 13.1 % (11.6-15.6); WHITE BLOOD COUNT 7.1 K/mm3 (4.0-10.0)
[2020-06-06 10:47] LABS: ALBUMIN 3.5 g/dl (3.4-5.0); BILIRUBIN,TOTAL 0.4 mg/dL (0.2-1); BLOOD UREA NITROGEN 11.8 mg/dL (7-18); CALCIUM 8.6 mg/dL (8.5-10.1); CREATININE 0.7 mg/dL (0.55-1.3); MAGNESIUM 2.2 mg/dL (1.8-2.4); POTASSIUM 4.4 mmol/L (3.5-5.1); TOT PROT 6.8 g/dl (6.4-8.2)
[2020-06-06] MEDS: POLYETHYLENE GLYCOL 3350 119 GM BTL PO SCH (10:57)
[2020-06-06] MEDS: SODIUM CHLORIDE 1 GM TABLET PO SCH ×2 (10:58→21:03)
[2020-06-06] MEDS: ENOXAPARIN NA (PORCINE) 40 MG/0.4 ML DISP.SYRIN SQ SCH (10:58)
[2020-06-06] MEDS: ASPIRIN 81 MG CHEWABLE TABLETS PO SCH (10:58)
[2020-06-06] MEDS: HYDROCORTISONE 2.5% TOPICAL CREAM 30 GM TUBE RC SCH (10:59)
[2020-06-06] MEDS: LISINOPRIL 5 MG TABLET (FP) PO SCH (10:59)
[2020-06-06] MEDS ORDERED: SODIUM CHLORIDE 1 GM TABLET PO ONE (12:32)
--- NOTE | 2020-06-06 12:32 | PN ---
Progress Note, Physician History of Present Illness: Pt seen and examined at bedside. SHe is awake and alert. She denies shortness of breath. - Current Medication List Current Medications: Active Medications Acetaminophen (Tylenol -) 650 mg PO Q4H PRN PRN Reason: PAIN LEVEL 1-5 Last Admin: 06/02/20 18:40 Dose: 650 mg Documented by: Amlodipine Besylate (Norvasc -) 5 mg PO DAILY [facility] Last Admin: 06/05/20 09:44 Dose: 5 mg Documented by: Aspirin (Asa -) 81 mg PO DAILY [facility] Last Admin: 06/06/20 10:58 Dose: 81 mg Documented by: Bisacodyl (Dulcolax -) 20 mg PO ONCE PRN PRN Reason: CONSTIPATION Last Admin: 06/04/20 03:56 Dose: 20 mg Documented by: Enoxaparin Sodium (Lovenox -) 40 mg SQ DAILY [facility] Last Admin: 06/06/20 10:58 Dose: 40 mg Documented by: Hydrocortisone (Anusol 2.5% Hc Cream -) 1 applic RC DAILY [facility] Last Admin: 06/06/20 10:59 Dose: 1 applic Documented by: Lisinopril (Prinivil) 5 mg PO DAILY [facility] Last Admin: 06/06/20 10:59 Dose: 5 mg Documented by: Polyethylene Glycol (Miralax (For Daily Use) -) 17 gm PO DAILY [facility] Last Admin: 06/06/20 10:57 Dose: 17 grams Documented by: Sodium Chloride (Sodium Chloride Tablet -) 1 gm PO BID [facility] Last Admin: 06/06/20 10:58 Dose: 1 gm Documented by: - Objective Vital Signs: Vital Signs Temperature 98.5 F 06/06/20 09:00 Pulse Rate 85 06/06/20 09:00 Respiratory Rate 20 06/06/20 09:00 Blood Pressure 147/63 06/06/20 09:00 O2 Sat by Pulse Oximetry (%) 98 06/06/20 09:00 Constitutional: Yes: Calm Eyes: Yes: Conjunctiva Clear HENT: Yes: Atraumatic Neck: Yes: Supple Cardiovascular: Yes: S1, S2 Respiratory: Yes: CTA Bilaterally Gastrointestinal: Yes: Normal Bowel Sounds, Soft Genitourinary: Yes: WNL Musculoskeletal: Yes: WNL Edema: No Neurological: Yes: Oriented Psychiatric: Yes: Oriented Labs: CBC, BMP 06/06/20 09:50 06/06/20 09:50 Problem List - Problems (1) Hyponatremia Code(s): E87.1 - HYPO-OSMOLALITY AND HYPONATREMIA (2) Constipation Code(s): K59.00 - CONSTIPATION, UNSPECIFIED Assessment/Plan Current Medications Generic Name Dose Route Start Last Admin Trade Name Freq PRN Reason Stop Dose Admin Acetaminophen 650 mg 06/02/20 16:50 06/02/20 18:40 Tylenol - PO 650 mg Q4H PRN Administration PAIN LEVEL 1-5 Amlodipine Besylate 5 mg 06/03/20 10:00 06/05/20 09:44 Norvasc - PO 5 mg DAILY ERNESTO Administration Aspirin 81 mg 06/03/20 10:00 06/06/20 10:58 Asa - PO 81 mg DAILY ERNESTO Administration Bisacodyl 20 mg 06/03/20 09:00 06/04/20 03:56 Dulcolax - PO 20 mg ONCE PRN Administration CONSTIPATION Enoxaparin Sodium 40 mg 06/03/20 10:00 06/06/20 10:58 Lovenox - SQ 40 mg DAILY ERNESTO Administration Hydrocortisone 1 applic 06/03/20 10:00 06/06/20 10:59 Anusol 2.5% Hc Cream - RC 1 applic DAILY ERNESTO Administration Lisinopril 5 mg 06/03/20 10:00 06/06/20 10:59 Prinivil PO 5 mg DAILY ERNESTO Administration Polyethylene Glycol 17 gm 06/03/20 10:00 06/06/20 10:57 Miralax (For Daily Use) - PO 17 grams DAILY ERNESTO Administration Sodium Chloride 1 gm 06/04/20 22:00 06/06/20 10:58 Sodium Chloride Tablet - PO 1 gm BID ERNESTO Administration Impression 1. hyponatremia 2. UTI 3. htn 4. constipation 5. rectal pain Plan - sodium continues to improve - cont free water restriction - cont salt tabs - pt remains at risk to fall - urine studies consistent with siadh - age appropriate cancer screening
[2020-06-06] MEDS: amLODIPine BESYLATE 5 MG TABLET (FP) PO SCH (13:53)
[2020-06-06] MEDS ORDERED: PT OWN MED DRAWER 7, Y5N ONE (20:37)
--- NOTE | 2020-06-07 05:37 | PN ---
Physical Exam: SUBJECTIVE: Patient seen and examined sitting on edge of bed. Feels well, voices no complaints. Walking is better, steadier. OBJECTIVE: Vital Signs Period Temp Pulse Resp BP Sys/Salgado Pulse Ox Last 24 Hr 98 F-100.2 F 75-94 18-20 133-155/63-75 95-98 GENERAL: The patient is awake, alert, and fully oriented, in no acute distress. LUNGS: Breath sounds equal, clear to auscultation bilaterally, no wheezes, no crackles, no accessory muscle use. HEART: Regular rate and rhythm, S1, S2 ABDOMEN: Soft, nontender, nondistended EXTREMITIES: 2+ pulses, warm, well-perfused, no edema. NEUROLOGICAL: Cranial nerves II through XII grossly intact. Normal speech, self- positions easily. Laboratory Results - last 24 hr 06/06/20 06/06/20 09:50 09:50 WBC 7.1 RBC 3.70 Hgb 11.9 Hct 34.6 MCV 93.6 MCH 32.3 MCHC 34.5 RDW 13.1 Plt Count 289 MPV 6.7 L Absolute Neuts (auto) 5.2 Neutrophils % 73.4 Lymphocytes % 14.4 D Monocytes % 9.6 Eosinophils % 1.6 Basophils % 1.0 Nucleated RBC % 0 Sodium 128 L Potassium 4.4 Chloride 95 L Carbon Dioxide 25 Anion Gap 9 BUN 11.8 Creatinine 0.7 Est GFR (CKD-EPI)AfAm 92.86 Est GFR (CKD-EPI)NonAf 80.12 Random Glucose 118 H Calcium 8.6 Magnesium 2.2 Total Bilirubin 0.4 AST 14 L ALT 17 Alkaline Phosphatase 67 Total Protein 6.8 Albumin 3.5 Active Medications Generic Name Dose Route Start Last Admin Trade Name Freq PRN Reason Stop Dose Admin Acetaminophen 650 mg 06/02/20 16:50 06/02/20 18:40 Tylenol - PO 650 mg Q4H PRN Administration PAIN LEVEL 1-5 Amlodipine Besylate 5 mg 06/03/20 10:00 06/06/20 13:53 Norvasc - PO 5 mg DAILY [facility] Administration Aspirin 81 mg 06/03/20 10:00 06/06/20 10:58 Asa - PO 81 mg DAILY [facility] Administration Bisacodyl 20 mg 06/03/20 09:00 06/04/20 03:56 Dulcolax - PO 20 mg ONCE PRN Administration CONSTIPATION Enoxaparin Sodium 40 mg 06/03/20 10:00 06/06/20 10:58 Lovenox - SQ 40 mg DAILY [facility]STO Administration Hydrocortisone 1 applic 06/03/20 10:00 06/06/20 10:59 Anusol 2.5% Hc Cream - RC 1 applic DAILY [facility]O Administration Lisinopril 5 mg 06/03/20 10:00 06/06/20 10:59 Prinivil PO 5 mg DAILY [facility] Administration Polyethylene Glycol 17 gm 06/03/20 10:00 06/06/20 10:57 Miralax (For Daily Use) - PO 17 grams DAILY [facility] Administration Sodium Chloride 1 gm 06/04/20 22:00 06/06/20 21:03 Sodium Chloride Tablet - PO 1 gm BID ERNESTO Administration ASSESSMENT/PLAN: 84 year-old female with a PMH significant for HTN, HLD, and history of hyponatremia, admitted for hyponatremia. Toxic metabolic encephalopathy secondary to hyponatremia SIADH --Na 121 on admission, trending up 129 --continue to fluid restrict --continue salt tabs BID s/p fall --CT head negative Pyruia --Group B strep <60k --afebrile, no leukocytosis --observe off antibiotics Hemorrhoids --with associated rectal pain, chronic issue --outpatient f/u with GI Hypertension --BP stable --continue amlodipine, lisinopril Hyperlipidemia --not on statin therapy DVT prophylaxis: subq lovenox Physical therapy Dispo: continues to require inpatient care. Full code. Visit type - Emergency Visit Emergency Visit: Yes ED Registration Date: 06/02/20 Care time: The patient presented to the Emergency Department on the above date and was hospitalized for further evaluation of their emergent condition. - New Patient This patient is new to me today: No - Critical Care Critical Care patient: No - Medication Review Med list reviewed for High Risk Meds patients 65 and older: Yes
--- NOTE | 2020-06-07 05:37 | PN ---
Physical Exam: SUBJECTIVE: Patient seen and examined at bedside. Daughter present. Lengthy conversation about plan of care, all questions answered. Patient feels more steady walking. OBJECTIVE: Vital Signs Period Temp Pulse Resp BP Sys/Salgado Pulse Ox Last 24 Hr 98 F-100.2 F 75-94 18-20 133-155/63-75 95-98 GENERAL: The patient is awake, alert, and fully oriented, in no acute distress. LUNGS: Breath sounds equal, clear to auscultation bilaterally, no wheezes, no crackles, no accessory muscle use. HEART: Regular rate and rhythm, S1, S2 ABDOMEN: Soft, nontender, nondistended EXTREMITIES: 2+ pulses, warm, well-perfused, no edema. NEUROLOGICAL: Cranial nerves II through XII grossly intact. Normal speech, gait not observed. Laboratory Results - last 24 hr 06/06/20 06/06/20 09:50 09:50 WBC 7.1 RBC 3.70 Hgb 11.9 Hct 34.6 MCV 93.6 MCH 32.3 MCHC 34.5 RDW 13.1 Plt Count 289 MPV 6.7 L Absolute Neuts (auto) 5.2 Neutrophils % 73.4 Lymphocytes % 14.4 D Monocytes % 9.6 Eosinophils % 1.6 Basophils % 1.0 Nucleated RBC % 0 Sodium 128 L Potassium 4.4 Chloride 95 L Carbon Dioxide 25 Anion Gap 9 BUN 11.8 Creatinine 0.7 Est GFR (CKD-EPI)AfAm 92.86 Est GFR (CKD-EPI)NonAf 80.12 Random Glucose 118 H Calcium 8.6 Magnesium 2.2 Total Bilirubin 0.4 AST 14 L ALT 17 Alkaline Phosphatase 67 Total Protein 6.8 Albumin 3.5 Active Medications Generic Name Dose Route Start Last Admin Trade Name Freq PRN Reason Stop Dose Admin Acetaminophen 650 mg 06/02/20 16:50 06/02/20 18:40 Tylenol - PO 650 mg Q4H PRN Administration PAIN LEVEL 1-5 Amlodipine Besylate 5 mg 06/03/20 10:00 06/06/20 13:53 Norvasc - PO 5 mg DAILY [facility] Administration Aspirin 81 mg 06/03/20 10:00 06/06/20 10:58 Asa - PO 81 mg DAILY [facility] Administration Bisacodyl 20 mg 06/03/20 09:00 06/04/20 03:56 Dulcolax - PO 20 mg ONCE PRN Administration CONSTIPATION Enoxaparin Sodium 40 mg 06/03/20 10:00 06/06/20 10:58 Lovenox - SQ 40 mg DAILY [facility] Administration Hydrocortisone 1 applic 06/03/20 10:00 06/06/20 10:59 Anusol 2.5% Hc Cream - RC 1 applic DAILY [facility] Administration Lisinopril 5 mg 06/03/20 10:00 06/06/20 10:59 Prinivil PO 5 mg DAILY [facility] Administration Polyethylene Glycol 17 gm 06/03/20 10:00 06/06/20 10:57 Miralax (For Daily Use) - PO 17 grams DAILY [facility] Administration Sodium Chloride 1 gm 06/04/20 22:00 06/06/20 21:03 Sodium Chloride Tablet - PO 1 gm BID ERNESTO Administration ASSESSMENT/PLAN 84 year-old female with a PMH significant for HTN, HLD, and history of hyponatremia, admitted for hyponatremia. Toxic metabolic encephalopathy secondary to hyponatremia SIADH --Na 121 on admission, trending up 128 --continue to fluid restrict --continue salt tabs BID s/p fall --CT head negative Pyruia --Group B strep <60k --afebrile, no leukocytosis --has had multiple urine screens over past several months, all negative for infection; urologist at home thinks symptoms of dysuria, urgency are from bladder spasms, prescribed Myrbetriq but patient self dc'd --observe off antibiotics Hemorrhoids --with associated rectal pain, chronic issue --outpatient f/u with GI Hypertension --BP stable --continue amlodipine, lisinopril Hyperlipidemia --not on statin therapy DVT prophylaxis: subq lovenox Physical therapy Dispo: continues to require inpatient care. Full code. Visit type - Emergency Visit Emergency Visit: Yes ED Registration Date: 06/02/20 Care time: The patient presented to the Emergency Department on the above date and was hospitalized for further evaluation of their emergent condition. - New Patient This patient is new to me today: No - Critical Care Critical Care patient: No - Medication Review Med list reviewed for High Risk Meds patients 65 and older: Yes
[2020-06-07 07:51] LABS: ALBUMIN 3.4 g/dl (3.4-5.0); BILIRUBIN,TOTAL 0.4 mg/dL (0.2-1); BLOOD UREA NITROGEN 12.3 mg/dL (7-18); CALCIUM 8.8 mg/dL (8.5-10.1); CREATININE 0.6 mg/dL (0.55-1.3); MAGNESIUM 2.3 mg/dL (1.8-2.4); POTASSIUM 4.4 mmol/L (3.5-5.1); TOT PROT 6.8 g/dl (6.4-8.2)
[2020-06-07] MEDS: LISINOPRIL 5 MG TABLET (FP) PO SCH (09:36)
[2020-06-07] MEDS: amLODIPine BESYLATE 5 MG TABLET (FP) PO SCH (09:36)
[2020-06-07] MEDS: SODIUM CHLORIDE 1 GM TABLET PO SCH ×2 (09:36→21:41)
[2020-06-07] MEDS: ENOXAPARIN NA (PORCINE) 40 MG/0.4 ML DISP.SYRIN SQ SCH (09:36)
[2020-06-07] MEDS: ASPIRIN 81 MG CHEWABLE TABLETS PO SCH (09:36)
[2020-06-07] MEDS: HYDROCORTISONE 2.5% TOPICAL CREAM 30 GM TUBE RC SCH (09:36)
[2020-06-07] MEDS: POLYETHYLENE GLYCOL 3350 119 GM BTL PO SCH (09:37)
--- NOTE | 2020-06-07 13:34 | PN ---
Progress Note, Physician History of Present Illness: Pt seen and examined at bedside. SHe is awake and alert. She denies dizziness. - Current Medication List Current Medications: Active Medications Acetaminophen (Tylenol -) 650 mg PO Q4H PRN PRN Reason: PAIN LEVEL 1-5 Last Admin: 06/02/20 18:40 Dose: 650 mg Documented by: Amlodipine Besylate (Norvasc -) 5 mg PO DAILY [facility] Last Admin: 06/07/20 09:36 Dose: 5 mg Documented by: Aspirin (Asa -) 81 mg PO DAILY [facility] Last Admin: 06/07/20 09:36 Dose: 81 mg Documented by: Bisacodyl (Dulcolax -) 20 mg PO ONCE PRN PRN Reason: CONSTIPATION Last Admin: 06/04/20 03:56 Dose: 20 mg Documented by: Enoxaparin Sodium (Lovenox -) 40 mg SQ DAILY [facility] Last Admin: 06/07/20 09:36 Dose: 40 mg Documented by: Hydrocortisone (Anusol 2.5% Hc Cream -) 1 applic RC DAILY [facility] Last Admin: 06/07/20 09:36 Dose: 1 applic Documented by: Lisinopril (Prinivil) 5 mg PO DAILY [facility] Last Admin: 06/07/20 09:36 Dose: 5 mg Documented by: Polyethylene Glycol (Miralax (For Daily Use) -) 17 gm PO DAILY [facility] Last Admin: 06/07/20 09:37 Dose: 17 grams Documented by: Sodium Chloride (Sodium Chloride Tablet -) 1 gm PO BID [facility] Last Admin: 06/07/20 09:36 Dose: 1 gm Documented by: - Objective Vital Signs: Vital Signs Temperature 98.1 F 06/07/20 10:00 Pulse Rate 79 06/07/20 10:00 Respiratory Rate 18 06/07/20 10:00 Blood Pressure 139/71 06/07/20 10:00 O2 Sat by Pulse Oximetry (%) 96 06/07/20 10:00 Constitutional: Yes: Calm Eyes: Yes: Conjunctiva Clear HENT: Yes: Atraumatic Neck: Yes: Supple Cardiovascular: Yes: S1, S2 Respiratory: Yes: CTA Bilaterally Gastrointestinal: Yes: Soft Genitourinary: Yes: WNL Musculoskeletal: Yes: WNL Edema: No Neurological: Yes: Oriented Psychiatric: Yes: Oriented Labs: CBC, BMP 06/06/20 09:50 06/07/20 06:00 Problem List - Problems (1) Hyponatremia Code(s): E87.1 - HYPO-OSMOLALITY AND HYPONATREMIA (2) Constipation Code(s): K59.00 - CONSTIPATION, UNSPECIFIED Assessment/Plan Current Medications Generic Name Dose Route Start Last Admin Trade Name Freq PRN Reason Stop Dose Admin Acetaminophen 650 mg 06/02/20 16:50 06/02/20 18:40 Tylenol - PO 650 mg Q4H PRN Administration PAIN LEVEL 1-5 Amlodipine Besylate 5 mg 06/03/20 10:00 06/07/20 09:36 Norvasc - PO 5 mg DAILY ERNESTO Administration Aspirin 81 mg 06/03/20 10:00 06/07/20 09:36 Asa - PO 81 mg DAILY ERNESTO Administration Bisacodyl 20 mg 06/03/20 09:00 06/04/20 03:56 Dulcolax - PO 20 mg ONCE PRN Administration CONSTIPATION Enoxaparin Sodium 40 mg 06/03/20 10:00 06/07/20 09:36 Lovenox - SQ 40 mg DAILY ERNESTO Administration Hydrocortisone 1 applic 06/03/20 10:00 06/07/20 09:36 Anusol 2.5% Hc Cream - RC 1 applic DAILY ERNESTO Administration Lisinopril 5 mg 06/03/20 10:00 06/07/20 09:36 Prinivil PO 5 mg DAILY ERNESTO Administration Polyethylene Glycol 17 gm 06/03/20 10:00 06/07/20 09:37 Miralax (For Daily Use) - PO 17 grams DAILY ERNESTO Administration Sodium Chloride 1 gm 06/04/20 22:00 06/07/20 09:36 Sodium Chloride Tablet - PO 1 gm BID ERNESTO Administration Impression 1. hyponatremia 2. UTI 3. htn 4. constipation 5. rectal pain Plan - cont salt tabs - sodium improving - restrict free water - repeat labs in am - pt remains at risk to fall - urine studies consistent with siadh - age appropriate cancer screening
[2020-06-08] MEDS: ACETAMINOPHEN 325 MG TABLET (FP) PO PRN ×2 (05:47→22:34)
--- NOTE | 2020-06-08 09:25 | PN ---
Progress Note, Physician Chief Complaint: pt is doing well, nad, rectal pain is better and now on fluid restriction, - Current Medication List Current Medications: Active Medications Acetaminophen (Tylenol -) 650 mg PO Q4H PRN PRN Reason: PAIN LEVEL 1-5 Last Admin: 06/08/20 05:47 Dose: 650 mg Documented by: Amlodipine Besylate (Norvasc -) 5 mg PO DAILY [facility] Last Admin: 06/07/20 09:36 Dose: 5 mg Documented by: Aspirin (Asa -) 81 mg PO DAILY [facility] Last Admin: 06/07/20 09:36 Dose: 81 mg Documented by: Bisacodyl (Dulcolax -) 20 mg PO ONCE PRN PRN Reason: CONSTIPATION Last Admin: 06/04/20 03:56 Dose: 20 mg Documented by: Enoxaparin Sodium (Lovenox -) 40 mg SQ DAILY [facility] Last Admin: 06/07/20 09:36 Dose: 40 mg Documented by: Hydrocortisone (Anusol 2.5% Hc Cream -) 1 applic RC DAILY [facility] Last Admin: 06/07/20 09:36 Dose: 1 applic Documented by: Lisinopril (Prinivil) 5 mg PO DAILY [facility] Last Admin: 06/07/20 09:36 Dose: 5 mg Documented by: Polyethylene Glycol (Miralax (For Daily Use) -) 17 gm PO DAILY [facility] Last Admin: 06/07/20 09:37 Dose: 17 grams Documented by: Sodium Chloride (Sodium Chloride Tablet -) 1 gm PO BID [facility] Last Admin: 06/07/20 21:41 Dose: 1 gm Documented by: - Objective Vital Signs: Vital Signs Temperature 97.5 F L 06/08/20 06:00 Pulse Rate 78 06/08/20 06:00 Respiratory Rate 18 06/08/20 06:00 Blood Pressure 161/76 06/08/20 06:00 O2 Sat by Pulse Oximetry (%) 95 06/08/20 06:00 Constitutional: Yes: Well Nourished, No Distress, Calm Eyes: Yes: Conjunctiva Clear, EOM Intact HENT: Yes: Atraumatic, Normocephalic Neck: Yes: Supple, Trachea Midline Cardiovascular: Yes: Regular Rate and Rhythm Respiratory: Yes: Regular, CTA Bilaterally Gastrointestinal: Yes: Normal Bowel Sounds, Soft Musculoskeletal: Yes: WNL Extremities: Yes: WNL Edema: No Peripheral Pulses WNL: Yes Neurological: Yes: WNL ...Motor Strength: WNL Labs: CBC, [facility] 06/06/20 09:50 06/07/20 06:00 CBC, [facility] 06/06/20 09:50 06/08/20 11:58 Impression/Plan Impression/Plan: 84 year-old female with a PMH significant for HTN, HLD, and history of hyponatremia, admitted for hyponatremia. 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, SIADH/ --Na 121 on admission, today 128 coninue fluid restriction, now on salt tab, hypo osmolar, and urine na >30, CT chest and abd is neagtive for malignancy, --continue to fluid restrict --continue salt tabs BID s/p fall --CT head negative Hemorrhoids --with associated rectal pain, chronic issue continue HC and treatment for the constipation, --outpatient f/u with GI Hypertension --BP stable --continue amlodipine, lisinopril DVT prophylaxis: [facility] Physical therapy Visit type - Emergency Visit Emergency Visit: No - New Patient This patient is new to me today: Yes Date on this admission: 06/08/20 - Critical Care Critical Care patient: No - Discharge Referral Referred to [facility] Med P.C.: No - Medication Review Med list reviewed for High Risk Meds patients 65 and older: Yes
[2020-06-08] MEDS: ASPIRIN 81 MG CHEWABLE TABLETS PO SCH (10:42)
[2020-06-08] MEDS: SODIUM CHLORIDE 1 GM TABLET PO SCH ×3 (10:42→22:33)
[2020-06-08] MEDS: ENOXAPARIN NA (PORCINE) 40 MG/0.4 ML DISP.SYRIN SQ SCH (10:43)
[2020-06-08] MEDS: LISINOPRIL 5 MG TABLET (FP) PO SCH (10:43)
[2020-06-08] MEDS: amLODIPine BESYLATE 5 MG TABLET (FP) PO SCH (10:43)
[2020-06-08] MEDS: POLYETHYLENE GLYCOL 3350 119 GM BTL PO SCH (10:44)
[2020-06-08] MEDS: HYDROCORTISONE 2.5% TOPICAL CREAM 30 GM TUBE RC SCH (10:47)
[2020-06-08 13:02] LABS: BLOOD UREA NITROGEN 16.4 mg/dL (7-18); CALCIUM 8.7 mg/dL (8.5-10.1); CREATININE 0.6 mg/dL (0.55-1.3); POTASSIUM 4.5 mmol/L (3.5-5.1)
--- NOTE | 2020-06-08 14:23 | PN ---
Progress Note, Physician History of Present Illness: Pt seen and examined at bedside. She is awake and alert. She denies shortness of breath. - Current Medication List Current Medications: Active Medications Acetaminophen (Tylenol -) 650 mg PO Q4H PRN PRN Reason: PAIN LEVEL 1-5 Last Admin: 06/08/20 05:47 Dose: 650 mg Documented by: Amlodipine Besylate (Norvasc -) 10 mg PO DAILY [facility] Aspirin (Asa -) 81 mg PO DAILY [facility] Last Admin: 06/08/20 10:42 Dose: 81 mg Documented by: Bisacodyl (Dulcolax -) 20 mg PO ONCE PRN PRN Reason: CONSTIPATION Last Admin: 06/04/20 03:56 Dose: 20 mg Documented by: Enoxaparin Sodium (Lovenox -) 40 mg SQ DAILY [facility] Last Admin: 06/08/20 10:43 Dose: 40 mg Documented by: Hydrocortisone (Anusol 2.5% Hc Cream -) 1 applic RC DAILY [facility] Last Admin: 06/08/20 10:47 Dose: 1 applic Documented by: Lisinopril (Prinivil) 5 mg PO DAILY [facility] Last Admin: 06/08/20 10:43 Dose: 5 mg Documented by: Polyethylene Glycol (Miralax (For Daily Use) -) 17 gm PO DAILY [facility] Last Admin: 06/08/20 10:44 Dose: 17 grams Documented by: Sodium Chloride (Sodium Chloride Tablet -) 1 gm PO BID [facility] Last Admin: 06/08/20 10:42 Dose: 1 gm Documented by: - Objective Vital Signs: Vital Signs Temperature 97.5 F L 06/08/20 06:00 Pulse Rate 78 06/08/20 06:00 Respiratory Rate 18 06/08/20 06:00 Blood Pressure 161/76 06/08/20 06:00 O2 Sat by Pulse Oximetry (%) 95 06/08/20 06:00 Constitutional: Yes: Calm Eyes: Yes: Conjunctiva Clear HENT: Yes: Atraumatic Cardiovascular: Yes: S1, S2 Respiratory: Yes: CTA Bilaterally Gastrointestinal: Yes: Normal Bowel Sounds, Soft Genitourinary: Yes: WNL Musculoskeletal: Yes: WNL Edema: No Neurological: Yes: Oriented Psychiatric: Yes: Oriented Labs: CBC, BMP 06/06/20 09:50 06/08/20 11:58 Problem List - Problems (1) Hyponatremia Code(s): E87.1 - HYPO-OSMOLALITY AND HYPONATREMIA (2) Constipation Code(s): K59.00 - CONSTIPATION, UNSPECIFIED Assessment/Plan Current Medications Generic Name Dose Route Start Last Admin Trade Name Freq PRN Reason Stop Dose Admin Acetaminophen 650 mg 06/02/20 16:50 06/08/20 05:47 Tylenol - PO 650 mg Q4H PRN Administration PAIN LEVEL 1-5 Amlodipine Besylate 10 mg 06/08/20 10:00 Norvasc - PO DAILY [facility] Aspirin 81 mg 06/03/20 10:00 06/08/20 10:42 Asa - PO 81 mg DAILY ER[facility]STO Administration Bisacodyl 20 mg 06/03/20 09:00 06/04/20 03:56 Dulcolax - PO 20 mg ONCE PRN Administration CONSTIPATION Enoxaparin Sodium 40 mg 06/03/20 10:00 06/08/20 10:43 Lovenox - SQ 40 mg DAILY ERNESTO Administration Hydrocortisone 1 applic 06/03/20 10:00 06/08/20 10:47 Anusol 2.5% Hc Cream - RC 1 applic DAILY [facility]NESTO Administration Lisinopril 5 mg 06/03/20 10:00 06/08/20 10:43 Prinivil PO 5 mg DAILY [facility]STO Administration Polyethylene Glycol 17 gm 06/03/20 10:00 06/08/20 10:44 Miralax (For Daily Use) - PO 17 grams DAILY [facility]STO Administration Sodium Chloride 1 gm 06/04/20 22:00 06/08/20 10:42 Sodium Chloride Tablet - PO 1 gm BID ERNESTO Administration Impression 1. hyponatremia - siadh 2. UTI 3. htn 4. constipation 5. rectal pain Plan - cont to monitor sodum - restrict free water - repeat labs in am - pt remains at risk to fall - urine studies consistent with siadh - age appropriate cancer screening
[2020-06-08] MEDS: amLODIPine BESYLATE 10 MG TABLET (FP) PO SCH (14:26)
[2020-06-08] MEDS: MAGNESIUM HYDROX 2400MG/30ML ORAL SUSPENSION 30 ML CUP PO PRN (15:53)
[2020-06-09] MEDS: SODIUM CHLORIDE 1 GM TABLET PO SCH ×3 (06:30→21:03)
--- NOTE | 2020-06-09 09:01 | PN ---
Physical Exam: SUBJECTIVE: Patient seen and examined. She has no complaints offered. OBJECTIVE: Vital Signs Period Temp Pulse Resp BP Sys/Salgado Pulse Ox Last 24 Hr 97.7 F-99 F 71-98 18-18 132-156/64-79 97-99 GENERAL: The patient is awake, alert, and fully oriented, in no acute distress. HEAD: Normal with no signs of trauma. EYES: PERRL, extraocular movements intact, sclera anicteric, conjunctiva clear. No ptosis. ENT: Ears normal, nares patent, oropharynx clear without exudates, moist mucous membranes. NECK: Trachea midline, full range of motion, supple. LUNGS: Breath sounds equal, clear to auscultation bilaterally, no wheezes, no crackles, no accessory muscle use. HEART: Regular rate and rhythm, S1, S2 without murmur, rub or gallop. ABDOMEN: Soft, nontender, nondistended, normoactive bowel sounds, no guarding, no rebound, no hepatosplenomegaly, no masses. EXTREMITIES: 2+ pulses, warm, well-perfused, no edema. NEUROLOGICAL: Cranial nerves II through XII grossly intact. Normal speech, gait not observed. PSYCH: Normal mood, normal affect. SKIN: Warm, dry, normal turgor, no rashes or lesions noted Laboratory Results - last 24 hr 06/08/20 11:58 Sodium 128 L Potassium 4.5 Chloride 94 L Carbon Dioxide 26 Anion Gap 8 BUN 16.4 Creatinine 0.6 Est GFR (CKD-EPI)AfAm 97.69 Est GFR (CKD-EPI)NonAf 84.29 Random Glucose 94 Calcium 8.7 Active Medications Generic Name Dose Route Start Last Admin Trade Name Davin PRN Reason Stop Dose Admin Acetaminophen 650 mg 06/02/20 16:50 06/08/20 22:34 Tylenol - PO 650 mg Q4H PRN Administration PAIN LEVEL 1-5 Amlodipine Besylate 10 mg 06/08/20 10:00 06/08/20 14:26 Norvasc - PO 5 mg DAILY ER[facility]STO Administration Aspirin 81 mg 06/03/20 10:00 06/08/20 10:42 Asa - PO 81 mg DAILY ERNESTO Administration Enoxaparin Sodium 40 mg 06/03/20 10:00 06/08/20 10:43 Lovenox - SQ 40 mg DAILY [facility]STO Administration Hydrocortisone 1 applic 06/03/20 10:00 06/08/20 10:47 Anusol 2.5% Hc Cream - RC 1 applic DAILY [facility]STO Administration Lisinopril 5 mg 06/03/20 10:00 06/08/20 10:43 Prinivil PO 5 mg DAILY [facility]STO Administration Magnesium Hydroxide 30 ml 06/08/20 14:42 06/08/20 15:53 Milk Of Magnesia - PO 30 ml DAILY PRN Administration CONSTIPATION Sodium Chloride 1 gm 06/08/20 14:30 06/09/20 06:30 Sodium Chloride Tablet - PO 1 gm TID ERNESTO Administration ASSESSMENT/PLAN: 84 year-old female with a PMH significant for HTN, Hyperlipidemia, hyponatremia, admitted for hyponatremia with initial sodium level of 121. Work up reveals probably became hyponatremic secondary to compulsive drinking to relieve constipation. CT of chest/Abd negative for malignancy. placed on salt tabs and fluid restriction 1. cont salt tab, fluid restriction for hyponatremia - slowly improving sodium levels - cont monitor - appreciate nephrology following 2. Hemorrhoids - cont current regimen for constipation - preparation H - OP FU with GI 3. Hypertension -continue amlodipine, lisinopril 4. DVT prophylaxis: subq lovenox 5. OOB to chair. Encouraged to ambulate Problem List - Problems (1) Hyponatremia Code(s): E87.1 - HYPO-OSMOLALITY AND HYPONATREMIA (2) Anal or rectal pain Code(s): K62.89 - OTHER SPECIFIED DISEASES OF ANUS AND RECTUM (3) Constipation Code(s): K59.00 - CONSTIPATION, UNSPECIFIED Visit type - Emergency Visit Emergency Visit: Yes ED Registration Date: 06/02/20 Care time: The patient presented to the Emergency Department on the above date and was hospitalized for further evaluation of their emergent condition. - New Patient This patient is new to me today: Yes Date on this admission: 06/09/20 - Critical Care Critical Care patient: No - Discharge Referral Referred to [facility] Med P.C.: No - Medication Review Med list reviewed for High Risk Meds patients 65 and older: Yes
[2020-06-09] MEDS ORDERED: PT OWN MED DRAWER 7, Y5N ONE (09:23)
[2020-06-09] MEDS: ENOXAPARIN NA (PORCINE) 40 MG/0.4 ML DISP.SYRIN SQ SCH (10:36)
[2020-06-09] MEDS: LISINOPRIL 5 MG TABLET (FP) PO SCH (10:36)
[2020-06-09] MEDS: amLODIPine BESYLATE 10 MG TABLET (FP) PO SCH (10:36)
[2020-06-09] MEDS: ASPIRIN 81 MG CHEWABLE TABLETS PO SCH (10:36)
[2020-06-09] MEDS: MAGNESIUM HYDROX 2400MG/30ML ORAL SUSPENSION 30 ML CUP PO PRN (10:37)
[2020-06-09] MEDS: HYDROCORTISONE 2.5% TOPICAL CREAM 30 GM TUBE RC SCH (10:39)
--- NOTE | 2020-06-09 13:19 | PN ---
Progress Note, Physician History of Present Illness: Pt seen and examined at bedside. She is awake and alert. She is eager to go home. - Current Medication List Current Medications: Active Medications Acetaminophen (Tylenol -) 650 mg PO Q4H PRN PRN Reason: PAIN LEVEL 1-5 Last Admin: 06/08/20 22:34 Dose: 650 mg Documented by: Amlodipine Besylate (Norvasc -) 10 mg PO DAILY [facility] Last Admin: 06/09/20 10:36 Dose: 10 mg Documented by: Aspirin (Asa -) 81 mg PO DAILY [facility] Last Admin: 06/09/20 10:36 Dose: 81 mg Documented by: Enoxaparin Sodium (Lovenox -) 40 mg SQ DAILY [facility] Last Admin: 06/09/20 10:36 Dose: 40 mg Documented by: Hydrocortisone (Anusol 2.5% Hc Cream -) 1 applic RC DAILY [facility] Last Admin: 06/09/20 10:39 Dose: 1 applic Documented by: Lisinopril (Prinivil) 5 mg PO DAILY [facility] Last Admin: 06/09/20 10:36 Dose: 5 mg Documented by: Magnesium Hydroxide (Milk Of Magnesia -) 30 ml PO DAILY PRN PRN Reason: CONSTIPATION Last Admin: 06/09/20 10:37 Dose: 30 ml Documented by: Sodium Chloride (Sodium Chloride Tablet -) 1 gm PO TID [facility] Last Admin: 06/09/20 06:30 Dose: 1 gm Documented by: - Objective Vital Signs: Vital Signs Temperature 97.7 F 06/09/20 06:00 Pulse Rate 71 06/09/20 06:00 Respiratory Rate 18 06/09/20 06:00 Blood Pressure 132/64 06/09/20 06:00 O2 Sat by Pulse Oximetry (%) 98 06/09/20 06:00 Constitutional: Yes: Calm Eyes: Yes: Conjunctiva Clear HENT: Yes: Atraumatic Cardiovascular: Yes: S1, S2 Respiratory: Yes: CTA Bilaterally Gastrointestinal: Yes: Soft Genitourinary: Yes: WNL Musculoskeletal: Yes: WNL Edema: No Neurological: Yes: Oriented Psychiatric: Yes: Oriented Labs: CBC, BMP 06/06/20 09:50 06/08/20 11:58 Problem List - Problems (1) Hyponatremia Code(s): E87.1 - HYPO-OSMOLALITY AND HYPONATREMIA (2) Constipation Code(s): K59.00 - CONSTIPATION, UNSPECIFIED Assessment/Plan Current Medications Generic Name Dose Route Start Last Admin Trade Name Freq PRN Reason Stop Dose Admin Acetaminophen 650 mg 06/02/20 16:50 06/08/20 22:34 Tylenol - PO 650 mg Q4H PRN Administration PAIN LEVEL 1-5 Amlodipine Besylate 10 mg 06/08/20 10:00 06/09/20 10:36 Norvasc - PO 10 mg DAILY [facility]NESTO Administration Aspirin 81 mg 06/03/20 10:00 06/09/20 10:36 Asa - PO 81 mg DAILY ERNESTO Administration Enoxaparin Sodium 40 mg 06/03/20 10:00 06/09/20 10:36 Lovenox - SQ 40 mg DAILY ERNESTO Administration Hydrocortisone 1 applic 06/03/20 10:00 06/09/20 10:39 Anusol 2.5% Hc Cream - RC 1 applic DAILY ERNESTO Administration Lisinopril 5 mg 06/03/20 10:00 06/09/20 10:36 Prinivil PO 5 mg DAILY ERNESTO Administration Magnesium Hydroxide 30 ml 06/08/20 14:42 06/09/20 10:37 Milk Of Magnesia - PO 30 ml DAILY PRN Administration CONSTIPATION Sodium Chloride 1 gm 06/08/20 14:30 06/09/20 06:30 Sodium Chloride Tablet - PO 1 gm TID ERNESTO Administration Impression 1. hyponatremia - siadh 2. UTI 3. htn 4. constipation 5. rectal pain Plan - cont salt tab - restrict free water - repeat labs in am - will need outpt follow up - pt remains at risk to fall - urine studies consistent with siadh - age appropriate cancer screening
[2020-06-10] MEDS: SODIUM CHLORIDE 1 GM TABLET PO SCH ×2 (05:35→14:12)
--- NOTE | 2020-06-10 07:57 | CON.GI ---
Consult Consult Specialty:: Gi coverage - History of Present Illness History of Present Illness: 84 y/o F was admitted with hyponatremia, constipation and rectal pain. Did well with MOM and prune juice - Past Medical History Cardio/Vascular: Yes: HTN Gastrointestinal: Yes: Constipation Renal/: Yes: Other (hyponatremia) ...: No - Past Surgical History Past Surgical History: Yes: Cataract Removal - Alcohol/Substance Use Hx Alcohol Use: No - Smoking History Smoking history: Never smoked Have you smoked in the past 12 months: No Aproximately how many cigarettes per day: 5 Home Medications - Allergies Allergies/Adverse Reactions: Allergies Allergy/AdvReac Type Severity Reaction Status Date / Time No Known Allergies Allergy Verified 06/02/20 12:02 - Home Medications Home Medications: Ambulatory Orders Lisinopril [Prinivil] 15 mg PO BID 07/05/16 Simvastatin [Zocor -] 40 mg PO HS 07/05/16 Sennosides/Docusate Sodium [Senna Plus Tablet] 1 each PO BID #60 tablet 07/07/16 Amlodipine Besylate [Norvasc -] 5 mg PO DAILY 06/02/20 Aspirin [Children's Aspirin] 81 mg PO DAILY 06/02/20 Bisacodyl [Dulcolax] 2 tab PO BID 06/02/20 Polyethylene Glycol 3350 [Miralax 119 gm Btl -] 17 gm PO DAILY 06/02/20 Family Medical History Family History: Denies Physical Exam-GI Vital Signs: Vital Signs Temperature 97.8 F 06/10/20 05:50 Pulse Rate 78 06/10/20 05:50 Respiratory Rate 18 06/10/20 05:50 Blood Pressure 151/72 06/10/20 05:50 O2 Sat by Pulse Oximetry (%) 100 06/10/20 05:50 Constitutional: Yes: Well Nourished Eyes: Yes: Conjunctiva Clear HENT: Yes: Atraumatic Neck: Yes: Supple Cardiovascular: Yes: Regular Rate and Rhythm Respiratory: Yes: CTA Bilaterally ...Palpate: Yes: Soft. No: Firm/Rigid, Guarding, Hepatomegaly, Mass, Pulsatile Mass, Splenomegaly, Tenderness ...Rectal Exam: Yes: Hemorrhoids/Internal (, no masses) Labs: CBC, BMP 06/06/20 09:50 CBC,CMP WBC 7.1 K/mm3 (4.0-10.0) 06/06/20 09:50 RBC 3.70 M/mm3 (3.60-5.2) 06/06/20 09:50 Hgb 11.9 GM/dL (10.7-15.3) 06/06/20 09:50 Hct 34.6 % (32.4-45.2) 06/06/20 09:50 MCV 93.6 fl (80-96) 06/06/20 09:50 MCH 32.3 pg (25.7-33.7) 06/06/20 09:50 MCHC 34.5 g/dl (32.0-36.0) 06/06/20 09:50 RDW 13.1 % (11.6-15.6) 06/06/20 09:50 Plt Count 289 K/MM3 (134-434) 06/06/20 09:50 MPV 6.7 fl (7.5-11.1) L 06/06/20 09:50 Absolute Neuts (auto) 5.2 K/mm3 (1.5-8.0) 06/06/20 09:50 Neutrophils % 73.4 % (42.8-82.8) 06/06/20 09:50 Lymphocytes % 14.4 % (8-40) D 06/06/20 09:50 Monocytes % 9.6 % (3.8-10.2) 06/06/20 09:50 Eosinophils % 1.6 % (0-4.5) 06/06/20 09:50 Basophils % 1.0 % (0-2.0) 06/06/20 09:50 Nucleated RBC % 0 % (0-0) 06/06/20 09:50 Sodium 128 mmol/L (136-145) L 06/08/20 11:58 Potassium 4.5 mmol/L (3.5-5.1) 06/08/20 11:58 Chloride 94 mmol/L (98-107) L 06/08/20 11:58 Carbon Dioxide 26 mmol/L (21-32) 06/08/20 11:58 Anion Gap 8 MMOL/L (8-16) 06/08/20 11:58 BUN 16.4 mg/dL (7-18) 06/08/20 11:58 Creatinine 0.6 mg/dL (0.55-1.3) 06/08/20 11:58 Est GFR (CKD-EPI)AfAm 97.69 06/08/20 11:58 Est GFR (CKD-EPI)NonAf 84.29 06/08/20 11:58 Random Glucose 94 mg/dL (74-106) 06/08/20 11:58 Serum Osmolality 248 mosm/kg (278-305) L 06/02/20 17:00 Calcium 8.7 mg/dL (8.5-10.1) 06/08/20 11:58 Magnesium 2.3 mg/dL (1.8-2.4) 06/07/20 06:00 Total Bilirubin 0.4 mg/dL (0.2-1) 06/07/20 06:00 AST 12 U/L (15-37) L 06/07/20 06:00 ALT 17 U/L (13-61) 06/07/20 06:00 Alkaline Phosphatase 61 U/L (45-117) 06/07/20 06:00 Total Protein 6.8 g/dl (6.4-8.2) 06/07/20 06:00 Albumin 3.4 g/dl (3.4-5.0) 06/07/20 06:00 TSH 1.37 uIU/ml (0.358-3.74) 06/02/20 17:00 Problem List - Problems (1) Anal or rectal pain Assessment/Plan: internal hemorrhoids R> hydrocortisone suppository at bedtime' hemorrhoidal cushion follow up wit Dr Becky flores an outpatient Code(s): K62.89 - OTHER SPECIFIED DISEASES OF ANUS AND RECTUM
[2020-06-10 08:29] LABS: POTASSIUM 4.4 mmol/L (3.5-5.1)
[2020-06-10 08:35] LABS: ALBUMIN 3.8 g/dl (3.4-5.0); BILIRUBIN,TOTAL 0.6 mg/dL (0.2-1); BLOOD UREA NITROGEN 14.2 mg/dL (7-18); CALCIUM 9.1 mg/dL (8.5-10.1); CREATININE 0.6 mg/dL (0.55-1.3); TOT PROT 7.9 g/dl (6.4-8.2)
[2020-06-10] MEDS: ASPIRIN 81 MG CHEWABLE TABLETS PO SCH (10:16)
[2020-06-10] MEDS: amLODIPine BESYLATE 10 MG TABLET (FP) PO SCH (10:16)
[2020-06-10] MEDS: LISINOPRIL 5 MG TABLET (FP) PO SCH (10:16)
[2020-06-10] MEDS: HYDROCORTISONE 2.5% TOPICAL CREAM 30 GM TUBE RC SCH (10:18)
[2020-06-10 12:43] VITALS: BMI 24.2
--- NOTE | 2020-06-10 14:24 | PN ---
Progress Note, Physician History of Present Illness: Pt seen and examined at bedside. She is awake and alert. - Current Medication List Current Medications: Active Medications Acetaminophen (Tylenol -) 650 mg PO Q4H PRN PRN Reason: PAIN LEVEL 1-5 Last Admin: 06/08/20 22:34 Dose: 650 mg Documented by: Amlodipine Besylate (Norvasc -) 10 mg PO DAILY [facility] Last Admin: 06/10/20 10:16 Dose: 10 mg Documented by: Aspirin (Asa -) 81 mg PO DAILY [facility] Last Admin: 06/10/20 10:16 Dose: 81 mg Documented by: Hydrocortisone (Anusol 2.5% Hc Cream -) 1 applic RC DAILY [facility] Last Admin: 06/10/20 10:18 Dose: 1 applic Documented by: Lisinopril (Prinivil) 5 mg PO DAILY [facility] Last Admin: 06/10/20 10:16 Dose: 5 mg Documented by: Magnesium Hydroxide (Milk Of Magnesia -) 30 ml PO DAILY PRN PRN Reason: CONSTIPATION Last Admin: 06/09/20 10:37 Dose: 30 ml Documented by: Sodium Chloride (Sodium Chloride Tablet -) 1 gm PO TID [facility] Last Admin: 06/10/20 14:12 Dose: 1 gm Documented by: - Objective Vital Signs: Vital Signs Temperature 98.6 F 06/10/20 10:00 Pulse Rate 90 06/10/20 10:00 Respiratory Rate 20 06/10/20 10:00 Blood Pressure 144/77 06/10/20 10:00 O2 Sat by Pulse Oximetry (%) 100 06/10/20 10:00 Constitutional: Yes: Calm Eyes: Yes: Conjunctiva Clear HENT: Yes: Atraumatic Neck: Yes: Supple Cardiovascular: Yes: S1, S2 Respiratory: Yes: CTA Bilaterally Gastrointestinal: Yes: Normal Bowel Sounds, Soft Genitourinary: Yes: WNL Musculoskeletal: Yes: WNL Edema: No Neurological: Yes: Oriented Psychiatric: Yes: Oriented Labs: CBC, BMP 06/06/20 09:50 06/10/20 07:23 Problem List - Problems (1) Hyponatremia Code(s): E87.1 - HYPO-OSMOLALITY AND HYPONATREMIA (2) Constipation Code(s): K59.00 - CONSTIPATION, UNSPECIFIED Assessment/Plan Current Medications Generic Name Dose Route Start Last Admin Trade Name Freq PRN Reason Stop Dose Admin Acetaminophen 650 mg 09/06/20 16:50 06/08/20 22:34 Tylenol - PO 650 mg Q4H PRN Administration PAIN LEVEL 1-5 Amlodipine Besylate 10 mg 06/08/20 10:00 06/10/20 10:16 Norvasc - PO 10 mg DAILY ERNESTO Administration Aspirin 81 mg 06/03/20 10:00 06/10/20 10:16 Asa - PO 81 mg DAILY ERNESTO Administration Hydrocortisone 1 applic 06/03/20 10:00 06/10/20 10:18 Anusol 2.5% Hc Cream - RC 1 applic DAILY ERNESTO Administration Lisinopril 5 mg 06/03/20 10:00 06/10/20 10:16 Prinivil PO 5 mg DAILY ERNESTO Administration Magnesium Hydroxide 30 ml 06/08/20 14:42 06/09/20 10:37 Milk Of Magnesia - PO 30 ml DAILY PRN Administration CONSTIPATION Sodium Chloride 1 gm 06/08/20 14:30 06/10/20 14:12 Sodium Chloride Tablet - PO 1 gm TID ERNESTO Administration Impression 1. hyponatremia - siadh 2. UTI 3. htn 4. constipation 5. rectal pain Plan - cont salt tabs - restrict free water - will need outpt follow up - sodium appears to be at baseline - urine studies consistent with siadh - age appropriate cancer screening
--- NOTE | 2020-06-10 14:35 | DS ---
Physical Exam: SUBJECTIVE: Patient seen and examined OBJECTIVE: Vital Signs Period Temp Pulse Resp BP Sys/Salgado Pulse Ox Last 24 Hr 97.8 F-98.6 F 76-90 18-20 144-153/65-77 98-100 PHYSICAL EXAM GENERAL: The patient is awake, alert, and fully oriented, in no acute distress. HEAD: Normal with no signs of trauma. EYES: PERRL, extraocular movements intact, sclera anicteric, conjunctiva clear. ENT: Ears normal, nares patent, oropharynx clear without exudates, moist mucous membranes. NECK: Trachea midline, full range of motion, supple. LUNGS: Breath sounds equal, clear to auscultation bilaterally, no wheezes, no crackles, no accessory muscle use. HEART: Regular rate and rhythm, S1, S2 without murmur, rub or gallop. ABDOMEN: Soft, nontender, nondistended, normoactive bowel sounds, no guarding, no rebound, no hepatosplenomegaly, no masses. EXTREMITIES: 2+ pulses, warm, well-perfused, no edema. NEUROLOGICAL: Cranial nerves II through XII grossly intact. Normal speech, gait not observed. PSYCH: Normal mood, normal affect. SKIN: Warm, dry, normal turgor, no rashes or lesions noted. LABS Laboratory Results - last 24 hr 06/10/20 07:23 Sodium 128 L Potassium 4.4 Chloride 94 L Carbon Dioxide 28 Anion Gap 6 L BUN 14.2 Creatinine 0.6 Est GFR (CKD-EPI)AfAm 97.69 Est GFR (CKD-EPI)NonAf 84.29 Random Glucose 100 Calcium 9.1 Total Bilirubin 0.6 AST 13 L ALT 23 Alkaline Phosphatase 84 Total Protein 7.9 Albumin 3.8 HOSPITAL COURSE: 84 year old female with a significant past medical history of mild glaucoma, HTN, hypercholesterolemia, hemorrhoids, history of hyponatremia (years ago, felt secondary to HCTZ) who was admitted for hyponatremia secondary to excessive water intake. She was also complaining from rectal pain, GI evaluation was done and pt was found to have internal hemorrhoids. Pt was placed on salt tablets and water restriction to 800cc/day. Na level improved to 128, pt was free from neurological symptoms and was discharged home for outpatient follow up with PCP and technician plant and maintenance. Date of Admission:06/02/20 Date of Discharge: 09/14/20 Minutes to complete discharge: 40 Discharge Summary Problems reviewed: Yes Reason For Visit: HYPONATREMIA/ANORECTAL PAIN Current Active Problems Anal or rectal pain (Acute) Hyponatremia (Acute) - Instructions Diet, Activity, Other Instructions: You were admitted because you were found to have low sodium. You were placed on water restriction and salt tablets. Your sodium level continued to improve. You should restrict your daily water/fluids intake to 800mL per day. You need to start taking the following new medications: 1. Sodium chloride 1gm three times daily . please continue taking the rest of your home medications as instructed Please, schedule a follow up with your primary care provider to address electrolytes, including your sodium level Please, schedule a follow up with technician plant and maintenance to check your sodium level, and continue work up for causes of hyponatremia If you feel worsening of your symptoms please call 911 or come to emergency department Referrals: Ezra Miranda MD [Primary Care Provider] - Edie Ndiaye MD [Staff Physician] - - Home Medications Comprehensive Discharge Medication List: Ambulatory Orders Lisinopril [Prinivil] 15 mg PO BID 07/05/16 Simvastatin [Zocor -] 40 mg PO HS 07/05/16 Sennosides/Docusate Sodium [Senna Plus Tablet] 1 each PO BID #60 tablet 07/07/16 Amlodipine Besylate [Norvasc -] 5 mg PO DAILY 06/02/20 Aspirin [Children's Aspirin] 81 mg PO DAILY 06/02/20 Bisacodyl [Dulcolax] 2 tab PO BID 06/02/20 Polyethylene Glycol 3350 [Miralax 119 gm Btl -] 17 gm PO DAILY 06/02/20 Hydrocortisone 2.5% Topical Cr [Anusol-Hc -] 1 applic RC DAILY #1 tube 06/10/20 Sodium Chloride Tablet - 1 gm PO TID #24 tablet 06/10/20 This patient is new to me today: Yes Date on this admission: 06/10/20 Emergency Visit: Yes ED Registration Date: 06/02/20 Care time: The patient presented to the Emergency Department on the above date and was hospitalized for further evaluation of their emergent condition. Critical Care patient: No - Discharge Referral Referred to [facility] Med [facility] No
[2020-06-10 16:38] VITALS: BP 140/70; PULSE 76; TEMP 98.2
== END 2020-06-10 17:00 | disposition home or self-care (01) | DRG 643 ==
LOC: JER 11:55 → JERBED 15:49 → J7W 22:05
PROVIDERS: ADMIT Internal Medicine; ATTEND Student in an Organized Health Care Education/Training Program
DX: E22.2 Syndrome of inappropriate secretion of antidiuretic hormone (principal); G92 Toxic encephalopathy; N39.0 Urinary tract infection, site not specified; K62.89 Other specified diseases of anus and rectum; E78.5 Hyperlipidemia, unspecified; I10 Essential (primary) hypertension; K59.00 Constipation, unspecified; K64.8 Other hemorrhoids
CPT/HCPCS: 36415; 70450-TC; 71250-TC; 74176-TC; 80048; 80053; 81003; 82436; 82565; 83735; 83930; 83935; 84133; 84156; 84295; 84300; 84443; 85025; 87077; 87086; 93005; 93010; 97116-GP; 97161-GP; 99285-25; J0131; U0003